=== PATIENT | male | born 1980 | race Caucasian/White ===

== ENCOUNTER 2016-06-22 20:00 | Emergency (ER) | payer MEDICARE, OTHER ==
[2016-06-22] MEDS ORDERED: NITROGLYCERIN SL TABS 0.4 MG TAB SUBLINGUAL STA (22:03)
--- NOTE | 2016-06-22 22:12 | ED ---
General Adult HPI - General Chief complaint: Chest Pain Stated complaint: chest pains Time Seen by Provider: 06/22/16 21:37 Source: patient, RN notes reviewed, old records reviewed Mode of arrival: ambulatory Limitations: no limitations - History of Present Illness Initial comments: Chief complaint and history of present illness a 36-year-old male who reports approximately 10 days ago he did some heavy lifting with his family member area and 3 days later he started having right anterior chest wall discomfort out increases with twisting and turning and deep breathing. He went to [facility] 3 days later and had an evaluation. Their diagnosis was muscular skeletal strain. Patient reports since then the point specific pain to the left anterior chest wall has gone away now he has a mild tightness across the chest wall. No associated radiation to his jaw neck or back. Never to the patient have any complaints of nausea or sweats. - Related Data Home Medications Medication Instructions Recorded Confirmed Liraglutide [Victoza 3-Jose M] 1.2 mg SQ DAILY 04/28/15 06/22/16 metFORMIN HCL 1,000 mg PO BID 04/28/15 06/22/16 Previous Rx's Medication Instructions Recorded Ibuprofen [Motrin] 600 mg PO Q6HR PRN #20 tab 06/22/16 Allergies Allergy/AdvReac Type Severity Reaction Status Date / Time No Known Allergies Allergy Verified 06/22/16 22:29 Review of Systems ROS Statement: Those systems with pertinent positive or pertinent negative responses have been documented in the HPI. Review of systems patient denies any visual acuity or headache patient is not chest pain but he does have mild tightness. Which can be reproduced by putting both hands together and squeezing his anterior chest wall muscles. No nausea no vomiting no sweats no abdominal pain. No complaints of any neuro deficits. All systems are reviewed. Past medical problems significant for patient having lost large amount of weight over 500 pounds down to 375. 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 At one time he was on blood thinners for. At time but is no longer needing them. The patient's surgeries include left great toe surgery. Family history not cooperative. No known ALLERGIES. Nonsmoker nondrinker. ROS Other: All systems not noted in ROS Statement are negative. Past Medical History Past Medical History: Diabetes Mellitus, Deep Vein Thrombosis (DVT), Pulmonary Embolus (PE) History of Any Multi-Drug Resistant Organisms: None Reported Past Surgical History: Orthopedic Surgery Additional Past Surgical History / Comment(s): lt. gt.toe surgery Past Anesthesia/Blood Transfusion Reactions: No Reported Reaction Past Psychological History: No Psychological Hx Reported Smoking Status: Former smoker Past Drug Use History: None Reported - Past Family History Mother Family Medical History: Diabetes Mellitus, Myocardial Infarction ([place]) Father Family Medical History: Diabetes Mellitus General Exam - General Exam Comments Initial Comments: General: The patient is awake and alert, in no distress, and does not appear acutely ill. Mild chest tightness across his chest which is reproducible by having him exercises pectoralis muscles. Vital signs show temperature 98.7 pulse 89 respiratory rate 20 pulse ox 98% room air blood pressure 135/76 Eye: Pupils are equal, round and reactive to light, extra-ocular movements are intact ; there is normal conjunctiva bilaterally. No signs of icterus. Ears, nose, mouth and throat: There are moist mucous membranes and no oral lesions. Neck: The neck is supple, there is no tenderness . Cardiovascular: There is a regular rate and rhythm. No murmur, rub or gallop is appreciated. Mild chest tightness when exerting himself. But no radiation no sweats no nausea and no other complaints. Respiratory: Lungs are clear to auscultation, respirations are non-labored, breath sounds are equal. No wheezes, stridor, rales, or rhonchi. Gastrointestinal: Soft, non-distended, non-tender abdomen without masses or organomegaly noted. There is no rebound or guarding present. No CVA tenderness. Bowel sounds are unremarkable. Back: There is no tenderness to palpation in the midline. There is no obvious deformity. No rashes noted. Musculoskeletal: Normal ROM, no tenderness, There is no pedal edema. There is no calf tenderness or swelling. Sensation intact. Pulses equal bilaterally 2+. Neurological: No complaint of any neuro deficits Skin: Skin is warm and dry and no rashes or lesions are noted. Limitations: no limitations Course Vital Signs 06/22/16 06/22/16 06/22/16 20:16 22:12 22:33 Temperature 98.7 F Pulse Rate 89 72 Pulse Rate [ 80 Right Radial] Respiratory 20 18 Rate Blood Pressure 135/76 119/79 O2 Sat by Pulse 98 99 Oximetry 06/22/16 22:38 Temperature Pulse Rate 94 Pulse Rate [ Right Radial] Respiratory 18 Rate Blood Pressure 116/66 O2 Sat by Pulse 96 Oximetry Medical Decision Making - Medical Decision Making Medical decision-making the patient's white count 10.8 hemoglobin 15 hematocrit of 44. INR is 1.0 the d-dimer normal at 0.26. Potassium 3.9, BUN 13 creatinine 0.97 with a GFR greater than 60. Glucose 132. Troponin less than 0.012. Patient was given one sublingual nitro without any significant effect. Chest chest was done and reviewed by radiologist his findings are heart and mediastinum are normal. Lungs are clear. Diaphragm is normal. Bony thorax is intact. There are chest leads. Impression; normal chest. As read by Dr. Meraz I discussed with the patient angina, costochondritis, pleurisy etc. appears though the patient strained his anterior chest wall by lifting very heavy oven. The discomfort is subsiding as the week has gone on. Labs within normal limits chest x-ray negative no improvement with sublingual nitro. The patient be advised to continue with ibuprofen home call follow up with his family physician or return emergency room as needed - Lab Data Result diagrams: 06/22/16 21:07 06/22/16 21:07 Lab Results 06/22/16 06/22/16 06/22/16 Range/Units 21:07 21:07 21:07 WBC 10.8 H (3.8-10.6) k/uL RBC 4.99 (4.30-5.90) m/uL Hgb 15.4 (13.0-17.5) gm/dL Hct 44.3 (39.0-53.0) % MCV 88.7 (80.0-100.0) fL MCH 30.8 (25.0-35.0) pg MCHC 34.7 (31.0-37.0) g/dL RDW 13.2 (11.5-15.5) % Plt Count 206 (150-450) k/uL Neutrophils % 54 % Lymphocytes % 37 % Monocytes % 3 % Eosinophils % 3 % Basophils % 1 % Neutrophils # 5.8 (1.3-7.7) k/uL Lymphocytes # 4.0 (1.0-4.8) k/uL Monocytes # 0.4 (0-1.0) k/uL Eosinophils # 0.4 (0-0.7) k/uL Basophils # 0.1 (0-0.2) k/uL PT (9.0-12.0) sec INR (<1.1) APTT (22.0-30.0) sec D-Dimer (<0.60) mg/L FEU Sodium 137 (137-145) mmol/L Potassium 3.9 (3.5-5.1) mmol/L Chloride 102 (98-107) mmol/L Carbon Dioxide 27 (22-30) mmol/L Anion Gap 8 mmol/L BUN 13 (9-20) mg/dL Creatinine 0.97 (0.66-1.25) mg/dL Est GFR (MDRD) Af Amer >60 (>60 ml/min/1.73 sqM) Est GFR (MDRD) Non-Af >60 (>60 ml/min/1.73 sqM) Glucose 132 H (74-99) mg/dL Calcium 9.2 (8.4-10.2) mg/dL Magnesium 1.8 (1.6-2.3) mg/dL Total Bilirubin 0.9 (0.2-1.3) mg/dL AST 27 (17-59) U/L ALT 24 (21-72) U/L Alkaline Phosphatase 48 (38-126) U/L Total Creatine Kinase 151 (55-170) U/L CK-MB (CK-2) 0.9 (0.0-2.4) ng/mL CK-MB (CK-2) Rel Index 0.6 Troponin I <0.012 (0.000-0.034) ng/mL Total Protein 7.3 (6.3-8.2) g/dL Albumin 4.0 (3.5-5.0) g/dL 06/22/16 Range/Units 21:07 WBC (3.8-10.6) k/uL RBC (4.30-5.90) m/uL Hgb (13.0-17.5) gm/dL Hct (39.0-53.0) % MCV (80.0-100.0) fL MCH (25.0-35.0) pg MCHC (31.0-37.0) g/dL RDW (11.5-15.5) % Plt Count (150-450) k/uL Neutrophils % % Lymphocytes % % Monocytes % % Eosinophils % % Basophils % % Neutrophils # (1.3-7.7) k/uL Lymphocytes # (1.0-4.8) k/uL Monocytes # (0-1.0) k/uL Eosinophils # (0-0.7) k/uL Basophils # (0-0.2) k/uL PT 10.3 (9.0-12.0) sec INR 1.0 (<1.1) APTT 23.9 (22.0-30.0) sec D-Dimer 0.26 (<0.60) mg/L FEU Sodium (137-145) mmol/L Potassium (3.5-5.1) mmol/L Chloride (98-107) mmol/L Carbon Dioxide (22-30) mmol/L Anion Gap mmol/L BUN (9-20) mg/dL Creatinine (0.66-1.25) mg/dL Est GFR (MDRD) Af Amer (>60 ml/min/1.73 sqM) Est GFR (MDRD) Non-Af (>60 ml/min/1.73 sqM) Glucose (74-99) mg/dL Calcium (8.4-10.2) mg/dL Magnesium (1.6-2.3) mg/dL Total Bilirubin (0.2-1.3) mg/dL AST (17-59) U/L ALT (21-72) U/L Alkaline Phosphatase (38-126) U/L Total Creatine Kinase (55-170) U/L CK-MB (CK-2) (0.0-2.4) ng/mL CK-MB (CK-2) Rel Index Troponin I (0.000-0.034) ng/mL Total Protein (6.3-8.2) g/dL Albumin (3.5-5.0) g/dL Disposition Clinical Impression: Costochondritis, acute Disposition: HOME SELF-CARE Condition: Stable Instructions: Costochondritis (ED) Additional Instructions: Take ibuprofen 600 mg every 6 hours. Follow-up with her family physician or return emergency room as needed Prescriptions: Ibuprofen [Motrin] 600 mg PO Q6HR PRN #20 tab PRN Reason: Pain Time of Disposition: 23:14
[2016-06-22 22:19] LABS: Basophils # (A) 0.1 k/uL (0-0.2); Basophils % (A) 1 %; CH 31.5; CHCM 35.7; Eosinophils # (A) 0.4 k/uL (0-0.7); Eosinophils % (A) 3 %; HCT 44.3 % (39.0-53.0); HDW 2.72; HGB 15.4 gm/dL (13.0-17.5); Luc # (Auto) 0.15; Luc % (Auto) 1; Lymphocytes % (A) 37 %; MCH 30.8 pg (25.0-35.0); MCHC 34.7 g/dL (31.0-37.0); MCV 88.7 fL (80.0-100.0); Mean Platelet Volume 7.7; Monocytes # (A) 0.4 k/uL (0-1.0); Monocytes % (A) 3 %; Neutrophils # (A) 5.8 k/uL (1.3-7.7); Neutrophils % (A) 54 %; RBC 4.99 m/uL (4.30-5.90); RDW 13.2 % (11.5-15.5); WBC 10.8 k/uL (3.8-10.6); WBC (Perox) 10.44
[2016-06-22 22:27] LABS: ALT 24 U/L (21-72); AST 27 U/L (17-59); Alkaline Phosphatase 48 U/L (38-126); Anion Gap 8 mmol/L; Blood Urea Nitrogen 13 mg/dL (9-20); Calcium 9.2 mg/dL (8.4-10.2); Carbon Dioxide 27 mmol/L (22-30); Chloride 102 mmol/L (98-107); Glucose 132 mg/dL (74-99); Magnesium 1.8 mg/dL (1.6-2.3); Non-African American GFR(MDRD) >60 (>60 ml/min/1.73 sqM); Potassium 3.9 mmol/L (3.5-5.1); Sodium 137 mmol/L (137-145); Total Bilirubin 0.9 mg/dL (0.2-1.3); Total Protein 7.3 g/dL (6.3-8.2)
[2016-06-22 22:33] LABS: Partial Thromboplastin Time 23.9 sec (22.0-30.0); Prothrombin Time 10.3 sec (9.0-12.0)
[2016-06-22 22:34] VITALS: RESP 18
[2016-06-22 22:39] LABS: Creatine Kinase 151 U/L (55-170)
--- NOTE | 2016-06-22 22:43 | XR ---
EXAMINATION TYPE: XR chest 2V DATE OF EXAM: 06/22/2016 10:25 PM COMPARISON: NONE HISTORY: Chest pain TECHNIQUE: Frontal and lateral views of the chest are obtained. FINDINGS: Heart and mediastinum are normal. Lungs are clear. Diaphragm is normal. Bony thorax is int act. There are chest leads. IMPRESSION: Normal chest
[2016-06-22 22:52] LABS: Creatine Kinase MB 0.9 ng/mL (0.0-2.4); Troponin I <0.012 ng/mL (0.000-0.034)
[2016-06-22 23:32] VITALS: BP 102/62; PULSE 80; TEMP 98.9
== END 2016-06-22 23:30 | disposition home or self-care (01) ==
LOC: EC 20:00
DX: M94.0 Chondrocostal junction syndrome [Tietze] (principal); E11.9 Type 2 diabetes mellitus without complications; Z87.891 Personal history of nicotine dependence; Z79.84 Long term (current) use of oral hypoglycemic drugs; Z79.899 Other long term (current) drug therapy
CPT/HCPCS: 36415; 71020; 80053; 82550; 82553; 83735; 84484; 85025; 85379; 85610; 85730; 93005; 99285

== ENCOUNTER 2016-06-26 18:42 | Emergency (ER) | payer MEDICARE, OTHER ==
[2016-06-26 18:51] VITALS: TEMP 98.3
--- NOTE | 2016-06-26 19:51 | ED ---
General Adult HPI - General Chief complaint: Shortness of Breath Stated complaint: back pain, SOB Time Seen by Provider: 06/26/16 19:30 Source: patient, RN notes reviewed, old records reviewed Mode of arrival: ambulatory Limitations: no limitations - History of Present Illness Initial comments: Chief complaint and history of present illness a 36-year-old male who was seen in the emergency room 4 days ago at that time the patient had across the anterior chest wall discomfort was reproducible. He had lifted with another person 500 pound oven. Vital signs at that time were within normal limits. The patient had labs done showing a normal d-dimer 0.21. Chest x-ray at that time EKG were all normal. Patient was discharged home on ibuprofen. He states he was feeling great with just those medications discomfort and anterior chest when away and he had just a mild discomfort to the left back area occasionally felt like he could not get a full deep breath. And then states he thinks he may be paranoid because he had in the past pulmonary embolism. He is not short of breath. Pulse ox is 96% room air respiratory rate 20 pulse ox 92. And again he had a normal d-dimer 4 days ago. - Related Data Home Medications Medication Instructions Recorded Confirmed Liraglutide [Victoza 3-Jose M] 1.2 mg SQ DAILY 04/28/15 06/26/16 metFORMIN HCL 1,000 mg PO BID 04/28/15 06/26/16 Previous Rx's Medication Instructions Recorded Ibuprofen [Motrin] 600 mg PO Q6HR PRN #20 tab 06/22/16 Ibuprofen [Motrin] 800 mg PO Q8HR PRN #20 tab 06/26/16 Allergies Allergy/AdvReac Type Severity Reaction Status Date / Time No Known Allergies Allergy Verified 06/26/16 19:21 Review of Systems ROS Statement: Those systems with pertinent positive or pertinent negative responses have been documented in the HPI. Review of systems no complaints of visual acuity headache or stiff neck. No chest pain or shortness of breath but just an occasional rare mild discomfort somewhere in the middle of his left back. Not entirely reproducible. On rare occasion feels like can't take a full breath or when he yawns. He thinks anxiety is causing him to feel this way. We did review his labs chest x-ray EKG from the visit is 4 days ago. Past medical problems patient is gone from 520 pounds on a 350 pounds by exercise and working out and diving property he went to [id number] diabetes mellitus from insulin-dependent diabetes mellitus. Does have a history of DVT or PE many years ago. Surgeries orthopedic surgery left great toe surgery. Family history Dr. Lafleur patient has no ALLERGIES. Nonsmoker nondrinker. ROS Other: All systems not noted in ROS Statement are negative. Past Medical History Past Medical History: Diabetes Mellitus, Deep Vein Thrombosis (DVT), Pulmonary Embolus (PE) History of Any Multi-Drug Resistant Organisms: None Reported Past Surgical History: Orthopedic Surgery Additional Past Surgical History / Comment(s): lt. gt.toe surgery Past Anesthesia/Blood Transfusion Reactions: No Reported Reaction Past Psychological History: No Psychological Hx Reported Smoking Status: Former smoker Past Alcohol Use History: Rare Past Drug Use History: None Reported - Past Family History Mother Family Medical History: Diabetes Mellitus, Myocardial Infarction ([place]) Father Family Medical History: Diabetes Mellitus General Exam - General Exam Comments Initial Comments: General: The patient is awake and alert, patient states he thinks he might just be a hypochondriac because in the past he had a pulmonary embolism and after having lifted a 500 pound of them he had some musculoskeletal discomfort initially to the anterior chest that has since gone away. There is mild discomfort to his left upper mid back. Not constant, just an occasional discomfort. Vital signs are temperature 98.3 pulse 92 respiratory rate 20 pulse ox 96% room air blood pressure 125/92 Eye: Pupils are equal, Neck: The neck is supple, there is no tenderness Cardiovascular: There is a regular rate and rhythm. No murmur, rub or gallop is appreciated. Respiratory: Lungs are clear to auscultation, respirations are non-labored, breath sounds are equal. No wheezes, stridor, rales, or rhonchi. Back: There is no tenderness to palpation in the midline. There is no obvious deformity. No rashes noted. The patient's discomfort is not constant somewhat irregular he states he thinks it's more anxiety and worry than real. Musculoskeletal: Normal ROM, no tenderness, There is no pedal edema. There is no calf tenderness or swelling. Limitations: no limitations Course Vital Signs 06/26/16 18:49 Temperature 98.3 F Pulse Rate 92 Respiratory 20 Rate Blood Pressure 125/92 O2 Sat by Pulse 96 Oximetry Medical Decision Making - Medical Decision Making We did discuss repeating labs including repeat chest x-ray and a CT with IV contrast. The patient has decided not to have a CAT scan or further workup at this time. States he is feeling good on the ibuprofen. His discomfort to the mid back is rare and only occasional. He states will follow-up with family physician return emergency room as needed. Disposition Clinical Impression: Costochondritis Disposition: HOME SELF-CARE Condition: Stable Instructions: Costochondritis (ED) Additional Instructions: Continue with ibuprofen 6R milligrams every 6 hours. Follow-up with family physician return emergency room if any questions or problems whatsoever Prescriptions: Ibuprofen [Motrin] 800 mg PO Q8HR PRN #20 tab PRN Reason: Pain Time of Disposition: 19:51
[2016-06-26 20:18] VITALS: BP 133/83; PULSE 87; RESP 18
== END 2016-06-26 20:15 | disposition home or self-care (01) ==
LOC: EC 18:42
DX: M94.0 Chondrocostal junction syndrome [Tietze] (principal); M54.9 Dorsalgia, unspecified; R06.02 Shortness of breath; E11.9 Type 2 diabetes mellitus without complications; Z87.891 Personal history of nicotine dependence; Z79.84 Long term (current) use of oral hypoglycemic drugs
CPT/HCPCS: 99285

== ENCOUNTER 2017-04-25 13:00 | Emergency (ER) | payer MEDICARE, OTHER ==
[2017-04-25 13:20] VITALS: BP 139/78; PULSE 105; RESP 20; TEMP 99.2
--- NOTE | 2017-04-25 14:48 | XR ---
EXAMINATION TYPE: XR shoulder complete LT DATE OF EXAM: 04/25/2017 CLINICAL HISTORY: Shoulder and left arm pain. TECHNIQUE: Three views of the left shoulder are obtained. COMPARISON: None. FINDINGS: There is no acute fracture/dislocation evident in the left shoulder. The glenohumeral neeru nt spaces appear within normal limits. Distal acromion morphology is preserved. The visualized ribs a re intact and unremarkable. IMPRESSION: There is no acute fracture or dislocation in the left shoulder.
--- NOTE | 2017-04-25 14:51 | ED ---
Extremity Problem HPI - General Chief complaint: Extremity Problem,Nontraumatic Stated complaint: Arm Pain Time Seen by Provider: 04/25/17 13:48 Source: patient, RN notes reviewed Mode of arrival: ambulatory Limitations: no limitations - History of Present Illness Initial comments: This is a 37-year-old male who presents to the emergency department with chief complaint of left shoulder and arm pain. Patient denies any specific injury or trauma to the arm. He does state that this has been going on for the past month and a half. He states that pain is made worse with movement of the arm. He describes the pain as an ache. He states that the pain is at his lateral shoulder and left upper arm. He also complains of numbness and tingling in his fourth and fifth digits on his left hand. Denies any neck or back pain. Denies fever, chills, chest pain, shortness of breath, abdominal pain, nausea or vomiting, constipation or diarrhea, dysuria or hematuria, headache or vision changes. - Related Data Home Medications Medication Instructions Recorded Confirmed metFORMIN HCL 1,000 mg PO BID 04/28/15 04/25/17 Previous Rx's Medication Instructions Recorded Ibuprofen 600 mg PO Q6HR #20 tablet 04/25/17 Allergies Allergy/AdvReac Type Severity Reaction Status Date / Time No Known Allergies Allergy Verified 04/25/17 13:55 Review of Systems ROS Statement: Those systems with pertinent positive or pertinent negative responses have been documented in the HPI. ROS Other: All systems not noted in ROS Statement are negative. Past Medical History Past Medical History: Diabetes Mellitus, Deep Vein Thrombosis (DVT), Pulmonary Embolus (PE) History of Any Multi-Drug Resistant Organisms: None Reported Past Surgical History: Orthopedic Surgery Additional Past Surgical History / Comment(s): lt. gt.toe surgery Past Anesthesia/Blood Transfusion Reactions: No Reported Reaction Past Psychological History: No Psychological Hx Reported Smoking Status: Former smoker Past Alcohol Use History: Rare Past Drug Use History: None Reported - Past Family History Mother Family Medical History: Diabetes Mellitus, Myocardial Infarction ([place]) Father Family Medical History: Diabetes Mellitus General Exam - General Exam Comments Initial Comments: General: Awake and alert, well-developed; in no apparent distress. HEENT: Head atraumatic, normocephalic. Pupils are equal, round and reactive to light. Extraocular movements intact. Oropharynx moist without erythema or exudate. Neck: Supple. Normal ROM. Cardiovascular: Regular rate and rhythm. No murmurs, rubs or gallops. Chest symmetrical. Respiratory: Lungs clear to auscultation bilaterally. No wheezes, rales or rhonchi. Normal respiratory effort with no use of accessory muscles. Musculoskeletal: Normal range of motion and no tenderness on palpation of left upper extremity. Sensation is intact. Radial pulses are 2+ equal and palpable bilaterally. Skin: [place], warm and dry without rashes or lesions. Neurological: Alert and oriented x3. CN II-XII grossly intact. Speech is fluent and answers are appropriate. No focal neuro deficits. Psychiatric: Normal mood and affect. No overt signs of depression or anxiety noted. Limitations: no limitations Course Vital Signs 04/25/17 13:18 Temperature 99.2 F Pulse Rate 105 H Respiratory 20 Rate Blood Pressure 139/78 O2 Sat by Pulse 98 Oximetry Medical Decision Making - Medical Decision Making This is a 37-year-old male who presents to the emergency department with chief complaint of left arm pain for a month and a half. Patient states pain is present with movement of the left arm. He also complains of numbness and tingling in his fourth and fifth digits on his left hand. Denies any specific injury, trauma or falls. X-ray of left shoulder reveals no acute abnormalities. X-ray of cervical spine did reveal mild facet arthropathy and spondylosis. Patient likely suffering from a cervical radiculopathy. He will be started on ibuprofen. He is to follow-up with his primary care provider. Patient will be discharged home. He is in no acute distress. He voices understanding and all questions were answered. - Radiology Data Radiology results: report reviewed Left shoulder x-ray findings: There is no acute fracture/dislocation evident in the left shoulder. The glenohumeral joint spaces appear within normal limits. Distal acromion morphology is preserved. The visualized ribs are intact and unremarkable. Impression: There is no acute fracture or dislocation in the left shoulder. X-ray cervical spine findings: No predental space widening or prevertebral soft tissue swelling. Normal alignment of the cervical spine. Mild facet arthropathy scattered throughout. The degree of obliquity causing some limitation in assessment of the neural foramina. Minimal endplate spondylosis is noted. Some heterotopic ossification in the posterior soft tissues of the lower neck. Impression: Scattered mild facet arthropathy. Minimal endplate spondylosis. Disposition Clinical Impression: Cervical radiculopathy Disposition: HOME SELF-CARE Condition: Good Instructions: Cervical Radiculopathy (ED) Additional Instructions: Please take medications as prescribed. Please follow up with primary care provider within 1-2 days. Return to emergency department if symptoms should worsen or any concerns arise. Prescriptions: Ibuprofen 600 mg PO Q6HR #20 tablet Referrals: Ted Franco MD [Primary Care Provider] - 1-2 days Time of Disposition: 15:10
--- NOTE | 2017-04-25 14:53 | XR ---
EXAMINATION TYPE: XR cervical spine comp DATE OF EXAM: 04/25/2017 COMPARISON: NONE HISTORY: 37 year-old male left arm and cervical pain TECHNIQUE: 6 views FINDINGS: No predental space widening or prevertebral soft tissue swelling. Normal alignment of the cervical sp ine. Mild facet arthropathy scattered throughout. The degree of obliquity causing some limitation in assessment of the neuroforamina. Minimal endplate spondylosis is noted. Some heterotopic ossification in the posterior soft tissues of the lower neck. IMPRESSION: Scattered mild facet arthropathy. Minimal endplate spondylosis.
== END 2017-04-25 15:26 | disposition home or self-care (01) ==
LOC: EC 13:00
DX: M54.12 Radiculopathy, cervical region (principal); M47.892 Other spondylosis, cervical region; E11.9 Type 2 diabetes mellitus without complications; Z87.891 Personal history of nicotine dependence; Z79.84 Long term (current) use of oral hypoglycemic drugs; Z98.890 Other specified postprocedural states
CPT/HCPCS: 72050; 99283

== ENCOUNTER 2018-01-31 11:20 | Day surgery (SDC) | payer MEDICARE, OTHER ==
[2018-01-31 12:04] VITALS: PULSE 85; RESP 20
[2018-01-31] MEDS: LIDOCAINE 1% INJ 10MG/ML (20 ML MDV) SQ ONE ×2 (12:17→12:27)
[2018-01-31 12:18] LABS: Glucose,Whole Blood 142 mg/dL (75-99)
[2018-01-31 13:08] VITALS: BP 144/82
--- NOTE | 2018-02-01 09:21 | IR ---
PICC LINE PLACEMENT: HISTORY: Infection requiring long-term antibiotic therapy PROCEDURE: Ultrasound and fluoroscopic guidance of PICC line placement. COMPLICATIONS: None ANESTHESIA: 1. 1% Lidocaine locally. FINDINGS/TECHNIQUE: The procedure was explained to the patient. The risks, complications, benefits and alternatives were discussed and any questions were answered. Informed consent was obtained. The patient was placed supine on the fluoroscopic table and prepped and draped in the usual sterile fash ion. Utilizing a 21 gauge needle and sonographic and fluoroscopic guidance, access in the right bas ilic vein was achieved and there is placement of a 0.018 guidewire. The vein is patent. A 4-F sheat h was placed over the guidewire. The guidewire and dilator were removed and a 4-F. PICC line was naun waylon through the sheath with the tip at the level of the SVC. The sheath was removed, the catheter wa s flushed and sutured into position. The patient was stable throughout the procedure and remained st able upon discharge from the Department of Radiology. The vein puncture was patent under ultrasound. A cabrera scale image was obtained to document patency of the vein punctured. All elements of the maximal barrier technique were utilized. FLUOROSCOPY TIME: 0.8 minutes of fluoroscopy and one image submitted IMPRESSION: Successful PICC line placement under ultrasound and fluoroscopic guidance.
== END 2018-01-31 13:00 | disposition home or self-care (01) ==
LOC: CATHCVL 11:20
PROVIDERS: ATTEND Radiology Diagnostic Radiology
DX: M86.172 Other acute osteomyelitis, left ankle and foot (principal)
CPT/HCPCS: 36569; 76937; 77001; C1751; C1769; J2001

== ENCOUNTER 2018-12-06 23:21 | Emergency (ER) | payer MEDICARE, OTHER ==
[2018-12-06 23:26] VITALS: PULSE 71; RESP 20; TEMP 97.9
[2018-12-06] MEDS ORDERED: KETOROLAC 30 MG/ML 1 ML VIAL IM STA (23:32)
[2018-12-06] MEDS ORDERED: AMOXIC-POT CLAV 875MG STARTER 2 EACH TABLET PO STA (23:32)
--- NOTE | 2018-12-06 23:35 | ED ---
General Adult HPI - General Chief complaint: ENT Stated complaint: Ear/facial pain Time Seen by Provider: 12/06/18 23:26 Source: patient Mode of arrival: ambulatory Limitations: no limitations - History of Present Illness Initial comments: 38-year-old male patient presents to the emergency department today for evaluation of right ear pain. Patient states that he started having some discomfort yesterday and today the pain worsens significantly. States he is having pain from his jaw up into his evangelical and in his right ear. Patient does have history of diabetes. Did have an infection to the right ear 3 months ago. Patient states he also has been told that he has problems with his wisdom teeth. He has not been back to a dentist to get this evaluated. States he has been taking Tylenol Motrin without relief. Denies any fever or chills. Denies any drainage from the ear. Patient denies any recent rash, shortness breath, chest pain, abdominal pain, nausea, vomiting, diarrhea, constipation, back pain, numbness, tingling, dizziness, weakness, hematuria, dysuria, urinary urgency, urinary frequency, headache, visual changes, or any other complaints. - Related Data Home Medications Medication Instructions Recorded Confirmed metFORMIN HCL 1,000 mg PO BID 04/28/15 01/31/18 traMADol HCL [Ultram] 50 mg PO Q6HR PRN 09/21/17 01/31/18 Lisinopril [Prinivil] 5 mg PO DAILY 01/23/18 01/31/18 Previous Rx's Medication Instructions Recorded Ertapenem [INVanz] 1 gm IVPB Q24H #41 bag 01/12/18 Amoxic-Pot Clav 875-125Mg 1 tab PO Q12HR #20 tablet 12/06/18 [Augmentin 875-125] Naproxen [EC-Naprosyn] 500 mg PO BID PRN #30 tablet. 12/06/18 Allergies Allergy/AdvReac Type Severity Reaction Status Date / Time No Known Allergies Allergy Verified 01/30/18 08:39 Review of Systems ROS Statement: Those systems with pertinent positive or pertinent negative responses have been documented in the HPI. ROS Other: All systems not noted in ROS Statement are negative. Past Medical History Past Medical History: Diabetes Mellitus, Deep Vein Thrombosis (DVT), Hypertension, Pulmonary Embolus (PE) History of Any Multi-Drug Resistant Organisms: None Reported Past Surgical History: Orthopedic Surgery Additional Past Surgical History / Comment(s): lt. gt.toe surgery Past Anesthesia/Blood Transfusion Reactions: No Reported Reaction Past Psychological History: No Psychological Hx Reported Smoking Status: Former smoker Past Alcohol Use History: Rare Past Drug Use History: Marijuana - Past Family History Mother Family Medical History: Diabetes Mellitus, Myocardial Infarction ([place]) Father Family Medical History: Diabetes Mellitus General Exam Limitations: no limitations General appearance: alert, in no apparent distress, other (Physical well- developed, well-nourished adult male patient in no acute distress. Vital signs upon presentation are temperature 97.9F, pulse 71, respirations 20, blood pressure 171/111, pulse ox 98% on room air.) Eye exam: Present: normal appearance, PERRL, EOMI. Absent: scleral icterus, conjunctival injection, periorbital swelling ENT exam: Present: normal oropharynx, mucous membranes moist, other (No mastoid tenderness. No trismus.). Absent: TM's normal bilaterally (Right tympanic membrane erythema and bulging. No exudate. .) Neck exam: Present: normal inspection. Absent: tenderness, meningismus, lymphadenopathy Respiratory exam: Present: normal lung sounds bilaterally Cardiovascular Exam: Present: regular rate, normal rhythm, normal heart sounds. Absent: systolic murmur, diastolic murmur, rubs, gallop, clicks GI/Abdominal exam: Present: soft, normal bowel sounds. Absent: distended, tenderness, guarding, rebound, rigid Neurological exam: Present: alert, oriented X3, CN II-XII intact Psychiatric exam: Present: normal affect, normal mood Skin exam: Present: warm, dry, intact, normal color. Absent: rash Course Vital Signs 12/06/18 12/06/18 23:22 23:52 Temperature 97.9 F Pulse Rate 71 Respiratory 20 Rate Blood Pressure 171/111 150/100 O2 Sat by Pulse 98 Oximetry Medical Decision Making - Medical Decision Making 38-year-old male patient presents to the emergency department today for evaluation of right ear pain. Physical examination did reveal a bulging and erythematous right tympanic membrane. There is no mastoid tenderness, no trismus, no lymphadenopathy. He is afebrile. Blood pressure is elevated, most likely related to pain. He'll be given pain medication here in the emergency department. He'll be discharged with prescription for Augmentin and naproxen. He is instructed to follow-up with his primary care physician for recheck in 1-2 days. Return parameters were discussed in detail. He verbalizes understanding and agrees with this plan. Disposition Clinical Impression: Right otitis media Disposition: HOME SELF-CARE Condition: Good Instructions (If sedation given, give patient instructions): Ear Infection (ED), Temporomandibular Disorder (ED) Additional Instructions: Take medication as directed. Follow-up through primary care physician for recheck in 1-2 days. Follow up with dentistry for recheck as soon as possible. Return to the emergency department immediately for any new, worsening, or concerning symptoms. Your prescriptions have been sent to the [facility] in [place], [place] Prescriptions: Amoxic-Pot Clav 875-125Mg [Augmentin 875-125] 1 tab PO Q12HR #20 tablet Naproxen [EC-Naprosyn] 500 mg PO BID PRN #30 tablet.dr BONILLA Reason: Pain Is patient prescribed a controlled substance at d/c from ED?: No Referrals: Ted Franco MD [Primary Care Provider] - 1-2 days Time of Disposition: 23:34
[2018-12-06 23:52] VITALS: BP 150/100
== END 2018-12-06 23:54 | disposition home or self-care (01) ==
LOC: EC 23:21
DX: H66.91 Otitis media, unspecified, right ear (principal); R68.84 Jaw pain; E11.9 Type 2 diabetes mellitus without complications; I10 Essential (primary) hypertension; Z79.84 Long term (current) use of oral hypoglycemic drugs; Z79.899 Other long term (current) drug therapy; Z87.891 Personal history of nicotine dependence; Z86.711 Personal history of pulmonary embolism; Z86.718 Personal history of other venous thrombosis and embolism
CPT/HCPCS: 96372; 99283; J1885

== ENCOUNTER → 2019-10-10 | Outpatient (CLI) | payer MEDICARE ==
--- NOTE | 2019-10-15 10:06 | P.ARTDOP ---
Arterial Doppler LOWER EXTREMITY ARTERIAL DOPPLER: DATE OF SERVICE: 10/10/2019 Reason for study: Left foot ulcer. Doppler waveforms: Multiphasic bilaterally throughout. Pulse volume recording: []. Pressure gradients: None. Ankle-brachial indices: Greater than 1 bilaterally. Toe brachial indices: 0.79 on the right, 0.9 on the left Impression: Normal study.
== END | disposition home or self-care (01) ==
LOC: RADUSWWP 12:59
PROVIDERS: ATTEND Family Medicine
DX: L97.529 Non-pressure chronic ulcer of other part of left foot with unspecified severity (principal)
CPT/HCPCS: 93922

== ENCOUNTER 2021-01-27 11:43 | Inpatient (IN) | payer MEDICARE, OTHER ==
--- NOTE | 2021-01-27 12:40 | XR ---
EXAMINATION TYPE: XR chest 2V DATE OF EXAM: 01/27/2021 COMPARISON: 06/22/2016 HISTORY: Chest pain TECHNIQUE: Frontal and lateral views of the chest are obtained. FINDINGS: There is no focal air space opacity. No evidence for pneumothorax. No pleural effusion. The cardiac silhouette size is within normal limits. The osseous structures are grossly intact. IMPRESSION: 1. No acute cardiopulmonary process.
--- NOTE | 2021-01-27 13:57 | ED ---
General Adult HPI - General Chief complaint: Chest Pain Stated complaint: Chest Pain Time Seen by Provider: 01/27/21 13:16 Source: patient Mode of arrival: ambulatory Limitations: no limitations - History of Present Illness Initial comments: Dictation was produced using Nove[employer] dictation software. please excuse any grammatical, word or spelling errors. Chief Complaint: 40-year-old male presents to the emergency department for chest pain History of Present Illness: Patient is a 40-year-old male he has past medical history of diabetes, obesity. Presents to the emergency department for chest pain. Patient complains also of shortness of breath. He allegedly has history of DVT and pulmonary embolus. Patient states that he has dull chest pain to his left anterior chest. Ongoing for the last couple days worse with exertion. P atient states history family history of cardiac disease. His mother was diagnosed with cardiac issues in her 50s. Denies any fever. No cough. Patient is remote history of PEs. He was on blood thinners at the time. This allegedly happened 7 years ago. DVT/PE prophylaxis. The ROS documented in this emergency department record has been reviewed and confirmed by me. Those systems with pertinent positive or negative responses have been documented in the HPI. All other systems are other negative and/or noncontributory. PHYSICAL EXAM: General Impression: Alert and oriented x3, not in acute distress HEENT: Normocephalic atraumatic, extra-ocular movements intact, pupils equal and reactive to light bilaterally, mucous membranes moist. Cardiovascular: Heart regular rate and rhythm Chest: Able to complete full sentences, no retractions, no tachypnea Abdomen: abdomen soft, non-tender, non-distended, no organomegaly Musculoskeletal: Pulses present and equal in all extremities, no peripheral edema Motor: no focal deficits noted Neurological: CN II-XII grossly intact, no focal motor or sensory deficits noted Skin: Intact with no visualized rashes Psych: Normal affect and mood ED course: 40-year-old male with multiple comorbidities presents to the emergency department for chest pain shortness of breath. Signs upon arrival shows findings within acceptable limits. Patient is not dyspneic at the bedside appears not tachycardic or hypotensive. Not hypoxic. EKG is unremarkable. Lab to evaluation obtained. CBC, coag panel is negative. Metabolic panel is within acceptable limits. Troponin is negative. D-dimer is 4.96. CT angios the chest was obtained showing multiple pulmonary emboli. No CT evidence of right heart strain. Patient started heparin. Patient will be admitted. Vascular surgery and pulmonology because consulted. Patient will be admitted to [facility].Patient reevaluated at bedside at 4:00 PM finding stable medical condition. Does not have any CT or laboratory evidence of right heart strain. He is not tachycardic nor hypoxic and well-appearing. Patient be admitted to telemetry. EKG interpretation: Ventricular rate 75, normal sinus rhythm,. 162, QRS 92, QTC 422. No MD prolongation, no QTC prolongation, no ST or T-wave changes noted. EKG compared to 06/22/2016 showing no changes. Overall, this EKG is unremarkable - Related Data Home Medications Medication Instructions Recorded Confirmed metFORMIN HCL [Glucophage] 1,000 mg PO BID 04/28/15 01/27/21 traMADol HCL [Ultram] 50 mg PO TID PRN 09/21/17 01/27/21 Atorvastatin Calcium [Lipitor] 10 mg PO DAILY 01/27/21 01/27/21 Semaglutide [Ozempic] 1 mg PO MO 01/27/21 01/27/21 lisinopriL [Zestril] 2.5 mg PO DAILY 01/27/21 01/27/21 rOPINIRole HCL [Requip] 0.5 mg PO HS 01/27/21 01/27/21 Allergies Allergy/AdvReac Type Severity Reaction Status Date / Time No Known Allergies Allergy Verified 01/27/21 14:28 Review of Systems ROS Statement: Those systems with pertinent positive or pertinent negative responses have been documented in the HPI. ROS Other: All systems not noted in ROS Statement are negative. Past Medical History Past Medical History: Diabetes Mellitus, Deep Vein Thrombosis (DVT), Hypertension, Pulmonary Embolus (PE) History of Any Multi-Drug Resistant Organisms: None Reported Past Surgical History: Orthopedic Surgery Additional Past Surgical History / Comment(s): lt. gt.toe surgery Past Anesthesia/Blood Transfusion Reactions: No Reported Reaction Past Psychological History: No Psychological Hx Reported Past Alcohol Use History: Rare Past Drug Use History: Marijuana - Past Family History Mother Family Medical History: Diabetes Mellitus, Myocardial Infarction ([place]) Father Family Medical History: Diabetes Mellitus General Exam Limitations: no limitations Course Vital Signs 01/27/21 01/27/21 11:50 13:36 Temperature 96.9 F L Pulse Rate 93 82 Pulse Rate [ 82 Right Pulse Oximetery] Respiratory 19 20 Rate Blood Pressure 157/102 153/88 O2 Sat by Pulse 97 97 Oximetry Medical Decision Making - Lab Data Result diagrams: 01/27/21 13:54 01/27/21 13:57 Lab Results 01/27/21 01/27/21 01/27/21 Range/Units 13:54 13:54 13:54 WBC 9.5 (3.8-10.6) k/uL RBC 5.24 (4.30-5.90) m/uL Hgb 16.4 (13.0-17.5) gm/dL Hct 45.0 (39.0-53.0) % MCV 86.0 (80.0-100.0) fL MCH 31.4 (25.0-35.0) pg MCHC 36.5 (31.0-37.0) g/dL RDW 13.1 (11.5-15.5) % Plt Count 210 (150-450) k/uL MPV 8.8 Neutrophils % 65 % Lymphocytes % 26 % Monocytes % 3 % Eosinophils % 4 % Basophils % 0 % Neutrophils # 6.2 (1.3-7.7) k/uL Lymphocytes # 2.5 (1.0-4.8) k/uL Monocytes # 0.3 (0-1.0) k/uL Eosinophils # 0.4 (0-0.7) k/uL Basophils # 0.0 (0-0.2) k/uL Hyperchromasia Moderate PT 10.5 (9.0-12.0) sec INR 1.0 (<1.2) APTT 23.7 (22.0-30.0) sec D-Dimer 4.96 H (<0.60) mg/L FEU Sodium (137-145) mmol/L Potassium (3.5-5.1) mmol/L Chloride (98-107) mmol/L Carbon Dioxide (22-30) mmol/L Anion Gap mmol/L BUN (9-20) mg/dL Creatinine (0.66-1.25) mg/dL Est GFR (CKD-EPI)AfAm (>60 ml/min/1.73 sqM) Est GFR (CKD-EPI)NonAf (>60 ml/min/1.73 sqM) Glucose (74-99) mg/dL Calcium (8.4-10.2) mg/dL Troponin I (0.000-0.034) ng/mL NT-Pro-B Natriuret Pep 162 pg/mL 01/27/21 01/27/21 Range/Units 13:57 13:57 WBC (3.8-10.6) k/uL RBC (4.30-5.90) m/uL Hgb (13.0-17.5) gm/dL Hct (39.0-53.0) % MCV (80.0-100.0) fL MCH (25.0-35.0) pg MCHC (31.0-37.0) g/dL RDW (11.5-15.5) % Plt Count (150-450) k/uL MPV Neutrophils % % Lymphocytes % % Monocytes % % Eosinophils % % Basophils % % Neutrophils # (1.3-7.7) k/uL Lymphocytes # (1.0-4.8) k/uL Monocytes # (0-1.0) k/uL Eosinophils # (0-0.7) k/uL Basophils # (0-0.2) k/uL Hyperchromasia PT (9.0-12.0) sec INR (<1.2) APTT (22.0-30.0) sec D-Dimer (<0.60) mg/L FEU Sodium 136 L (137-145) mmol/L Potassium 4.2 (3.5-5.1) mmol/L Chloride 102 (98-107) mmol/L Carbon Dioxide 26 (22-30) mmol/L Anion Gap 8 mmol/L BUN 10 (9-20) mg/dL Creatinine 0.83 (0.66-1.25) mg/dL Est GFR (CKD-EPI)AfAm >90 (>60 ml/min/1.73 sqM) Est GFR (CKD-EPI)NonAf >90 (>60 ml/min/1.73 sqM) Glucose 202 H (74-99) mg/dL Calcium 9.6 (8.4-10.2) mg/dL Troponin I <0.012 (0.000-0.034) ng/mL NT-Pro-B Natriuret Pep pg/mL Critical Care Time Critical Care Time: Yes Total Critical Care Time: 33 Disposition Clinical Impression: Pulmonary embolism Disposition: ADMITTED IP TO THIS HOSP Condition: Critical Referrals: Ted Franco MD [Primary Care Provider] - 1-2 days
[2021-01-27 14:10] LABS: African American GFR (CKD) >90 (>60 ml/min/1.73 sqM); Anion Gap 8 mmol/L; Blood Urea Nitrogen 10 mg/dL (9-20); Calcium 9.6 mg/dL (8.4-10.2); Carbon Dioxide 26 mmol/L (22-30); Chloride 102 mmol/L (98-107); Glucose 202 mg/dL (74-99); Non-African American GFR(CKD) >90 (>60 ml/min/1.73 sqM); Potassium 4.2 mmol/L (3.5-5.1); Sodium 136 mmol/L (137-145)
[2021-01-27 14:12] LABS: Basophils % (A) 0 %; Eosinophils # (A) 0.4 k/uL (0-0.7); Eosinophils % (A) 4 %; HGB 16.4 gm/dL (13.0-17.5); Hyperchromasia Moderate; Lymphocytes # (A) 2.5 k/uL (1.0-4.8); Lymphocytes % (A) 26 %; MCH 31.4 pg (25.0-35.0); MCHC 36.5 g/dL (31.0-37.0); Mean Platelet Volume 8.8; Monocytes # (A) 0.3 k/uL (0-1.0); Monocytes % (A) 3 %; Neutrophils # (A) 6.2 k/uL (1.3-7.7); Neutrophils % (A) 65 %; Platelet Count 210 k/uL (150-450); RBC 5.24 m/uL (4.30-5.90); RDW 13.1 % (11.5-15.5); WBC 9.5 k/uL (3.8-10.6)
[2021-01-27 14:24] LABS: Partial Thromboplastin Time 23.7 sec (22.0-30.0); Prothrombin Time 10.5 sec (9.0-12.0)
[2021-01-27] MEDS ORDERED: HEPARIN SODIUM 1,000 UN/ML (10ML VL) IV ONE (16:12)
[2021-01-27] MEDS ORDERED: HEPARIN SODIUM 1,000 UN/ML (10ML VL) IV PRN (16:12)
--- NOTE | 2021-01-27 16:13 | CT ---
EXAMINATION TYPE: CT angio chest DATE OF EXAM: 01/27/2021 COMPARISON: Chest x-ray earlier today HISTORY: elevated D-dimer, left-sided chest pain. CT DLP: 1053.4 mGycm. Automated Exposure Control for Dose Reduction was Utilized. CONTRAST: CTA scan of the thorax is performed with IV Contrast, patient injected with 100 mL of Isovue 370, pul monary embolism protocol. MIP Images are created on CT scanner and reviewed. FINDINGS: LUNGS: The lungs are grossly clear, there is no concerning parenchymal mass or nodule identified. T here is no pleural effusion or pneumothorax seen. The tracheobronchial tree is patent. MEDIASTINUM: There is suboptimal bolus but there is significant pulmonary emboli as there is embolism of the distal left pulmonary artery extending into upper and lower lobe along with lingular branches . There is branching thrombus in the distal right pulmonary artery thickening most prominent extensi on into the right middle lobe. There is segmental thrombus in the right lower lobe pulmonary artery a xial image 85 with subsegmental extension. Smaller upper lobe bilateral pulmonary emboli are seen. No right ventricular dilatation. There are no greater than 1 cm hilar or mediastinal lymph nodes. No cardiomegaly or pericardial effusion is seen. OTHER: Prominent liver on the localizer. Correlate clinically. IMPRESSION: Suboptimal study with significant bilateral pulmonary emboli. No CT evidence for RV strai n. Results communicated to ordering ER physician via telephone at time of dictation.
[2021-01-27] MEDS ORDERED: ONDANSETRON 4 MG/2 ML VIAL IVP PRN (16:16)
[2021-01-27] MEDS ORDERED: MORPHINE SULFATE 4 MG/ML SYRINGE IV PRN (16:16)
[2021-01-27] MEDS ORDERED: NALOXONE 0.4 MG/ML 1 ML VIAL IV PRN (16:16)
[2021-01-27] MEDS: HEPARIN SOD,PORK IN 0.45% NACL 25,000 UNIT in 0.45% NACL 1 250ML.BAG IV SCH (17:10)
[2021-01-27] MEDS: SODIUM CHLORIDE 0.9% 1,000 ML IV SCH (17:16)
[2021-01-27] MEDS ORDERED: traMADol 50 MG TAB PO PRN (18:00)
--- NOTE | 2021-01-27 18:04 | P.HPIM ---
History of Present Illness H&P Date: 01/27/21 Chief Complaint: Chest pain, dyspnea 40-year-old man with medical history of diabetes, hypertension, hyperlipidemia, history of pulmonary embolism, class III obesity presented with chest pain and shortness of breath. Patient says he has experienced symptoms for 2 days, star ting with sudden onset chest pain as well as progressive dyspnea on exertion. Due to his history of pulmonary embolism when he was in his late 20s, he became concerned and presented to the emergency room for further evaluation. He also noted that his exercise tolerance was becoming significantly worse over the last 48 hours. He denies fevers, chills, nausea, vomiting, palpitations, syncope, presyncope, cough, abdominal pain, diarrhea, constipation, numbness/weakness. In the emergency room, CT angiography of the chest demonstrated multiple bilateral pulmonary embolisms most significantly involving the right side. EKG demonstrated normal sinus rhythm with no ST-T changes. Review of Systems All Systems reviewed and pertinent positives and negatives noted in HPI, all other symptoms are negative Past Medical History Past Medical History: Diabetes Mellitus, Deep Vein Thrombosis (DVT), Hypertension, Pulmonary Embolus (PE) History of Any Multi-Drug Resistant Organisms: None Reported Past Surgical History: Orthopedic Surgery Additional Past Surgical History / Comment(s): lt. gt.toe surgery Past Anesthesia/Blood Transfusion Reactions: No Reported Reaction Past Psychological History: No Psychological Hx Reported Past Alcohol Use History: Rare Past Drug Use History: Marijuana - Past Family History Mother Family Medical History: Diabetes Mellitus, Myocardial Infarction ([place]) Father Family Medical History: Diabetes Mellitus Medications and Allergies Home Medications Medication Instructions Recorded Confirmed Type metFORMIN HCL [Glucophage] 1,000 mg PO BID 04/28/15 01/27/21 History traMADol HCL [Ultram] 50 mg PO TID PRN 09/21/17 01/27/21 History Atorvastatin Calcium [Lipitor] 10 mg PO DAILY 01/27/21 01/27/21 History Semaglutide [Ozempic] 1 mg PO MO 01/27/21 01/27/21 History lisinopriL [Zestril] 2.5 mg PO DAILY 01/27/21 01/27/21 History rOPINIRole HCL [Requip] 0.5 mg PO HS 01/27/21 01/27/21 History Allergies Allergy/AdvReac Type Severity Reaction Status Date / Time No Known Allergies Allergy Verified 01/27/21 14:28 Physical Exam Osteopathic Statement: *. No significant issues noted on an osteopathic struc tural exam other than those noted in the History and Physical/Consult. Vitals: Vital Signs Temp Pulse Pulse Resp BP Pulse Ox 01/27/21 13:36 82 82 20 153/88 97 01/27/21 11:50 96.9 F L 93 19 157/102 97 Intake and Output 01/27/21 01/27/21 01/27/21 06:59 14:59 22:59 Other: Weight 176.901 kg Gen: awake, alert, morbidly obese HEENT: normocephalic, atraumatic, good hearing acuity, moist mucous membranes Resp: good air exchange, breathing comfortably with no accessory muscle use, clear to auscultation bilaterally CVS: good distal perfusion x 4, regular rate and rhythm without murmurs GI: soft, NTTP, ND : no SPT, no CVAT, uribe catheter not present MSK: no pitting edema, no clubbing Neuro: non-focal, moving all extremities Psych: cooperative, euthymic mood Results CBC & Chem 7: 01/27/21 13:54 01/27/21 13:57 Labs: Abnormal Lab Results - Last 24 Hours (Table) 01/27/21 01/27/21 Range/Units 13:54 13:57 D-Dimer 4.96 H (<0.60) mg/L FEU Sodium 136 L (137-145) mmol/L Glucose 202 H (74-99) mg/dL Assessment and Plan Assessment: Acute bilateral submassive pulmonary embolism, unprovoked -Admit observation, telemetry -Heparin drip -BNP, troponin -Echo -Vascular, pulmonary consult Hypertension Diabetes type 2 Obesity class III, BMI 48.7 -Continue home medications, while holding metformin -LD SSI Patient is full code
[2021-01-27 21:22] LABS: Glucose,Whole Blood 136 mg/dL (75-99)
[2021-01-28 01:59] VITALS: RESP 18
[2021-01-28] MEDS: HEPARIN SOD,PORK IN 0.45% NACL 25,000 UNIT in 0.45% NACL 1 250ML.BAG IV SCH (02:04)
[2021-01-28 06:32] LABS: Glucose,Whole Blood 187 mg/dL (75-99)
[2021-01-28] MEDS ORDERED: INSULIN ASPART (NovoLOG) 100 UNIT/ML VIAL SQ SCH (07:30)
[2021-01-28 08:32] VITALS: BP 153/78; PULSE 69; TEMP 97.9
--- NOTE | 2021-01-28 08:40 | P.GSCN ---
History of Present Illness Consult date: 01/28/21 Reason for Consult: Bilateral pulmonary embolism Requesting physician: Jatinder Barker History of present illness: This is a 40-year-old male who presented to the emergency department with complaints of shortness of breath and chest pain. States it began to 3 days ago but has progressively gotten worse especially with exertion. Patient does have a past medical history of obesity, diabetes mellitus and previous DVT/pulmonary embolism. On admission the patient underwent a CT angiogram of the chest which was positive for bilateral miliary emboli. No CT evidence for RV strain. Echocardiogram has been ordered but is pending. On admission troponins were normal. The patient states his previous DVT pulmonary embolism was thought to be related to a sedentary lifestyle in 2006 he lost his job. He states recently in December he drove to [place] and back. He states he did not notice any increased swelling in his lower extremities or pain in his lower extremities. He states he does believe he may have seen a senior security architect in the past regarding the DVTs. States that his mother does have a significant history of blood clots and has had filters placed. He denies any clotting disorder that he knows of. He currently states his shortness of breath and chest pain has improved. States even walking to the restroom shortness of breath has improved. He is currently on a heparin drip. Oxygen saturation is 94-97% on room air. Review of Systems A 14 point review of systems was completed all pertinent positives and negatives as stated in the HPI Past Medical History Past Medical History: Diabetes Mellitus, Deep Vein Thrombosis (DVT), Hypertension, Pulmonary Embolus (PE) History of Any Multi-Drug Resistant Organisms: None Reported Past Surgical History: Orthopedic Surgery Additional Past Surgical History / Comment(s): lt. gt.toe surgery Past Anesthesia/Blood Transfusion Reactions: No Reported Reaction Past Psychological History: No Psychological Hx Reported Past Alcohol Use History: Rare Past Drug Use History: Marijuana - Past Family History Mother Family Medical History: Diabetes Mellitus, Myocardial Infarction ([place]) Father Family Medical History: Diabetes Mellitus Medications and Allergies Home Medications Medication Instructions Recorded Confirmed Type metFORMIN HCL [Glucophage] 1,000 mg PO BID 04/28/15 01/27/21 History traMADol HCL [Ultram] 50 mg PO TID PRN 09/21/17 01/27/21 History Atorvastatin Calcium [Lipitor] 10 mg PO DAILY 01/27/21 01/27/21 History Semaglutide [Ozempic] 1 mg PO MO 01/27/21 01/27/21 History lisinopriL [Zestril] 2.5 mg PO DAILY 01/27/21 01/27/21 History rOPINIRole HCL [Requip] 0.5 mg PO HS 01/27/21 01/27/21 History Allergies Allergy/AdvReac Type Severity Reaction Status Date / Time No Known Allergies Allergy Verified 01/27/21 14:28 Surgical - Exam Vital Signs Temp Pulse Resp BP Pulse Ox 96.9 F L 93 19 157/102 97 01/27/21 11:50 01/27/21 11:50 01/27/21 11:50 01/27/21 11:50 01/27/21 11:50 General appearance: The patient is alert, oriented, appears in no acute di stress. Morbidly obese. HET: Head is normocephalic and atraumatic. Neck: Supple without lymphadenopathy. Trachea midline. Heart: S1 S2. Regular rate and rhythm. Lungs: Clear to auscultation bilaterally. Abdomen: Soft, nontender, nondistended. Extremities: Normal skin color and turgor. No cyanosis, rash, ulceration, clubbing, or edema. Radial and pedal pulses are 2/4 bilaterally. Neurological: No focal deficits. Strength and sensation are grossly intact. Results - Labs 01/27/21 13:54 01/27/21 13:57 Abnormal Lab Results - Last 24 Hours (Table) 01/27/21 01/27/21 01/27/21 Range/Units 13:54 13:57 21:17 APTT (22.0-30.0) sec D-Dimer 4.96 H (<0.60) mg/L FEU Sodium 136 L (137-145) mmol/L Glucose 202 H (74-99) mg/dL POC Glucose (mg/dL) 136 H (75-99) mg/dL 01/27/21 01/28/21 01/28/21 Range/Units 23:47 06:20 06:21 APTT 47.5 H 41.0 H (22.0-30.0) sec D-Dimer (<0.60) mg/L FEU Sodium (137-145) mmol/L Glucose (74-99) mg/dL POC Glucose (mg/dL) 187 H (75-99) mg/dL Diabetes panel 01/27/21 Range/Units 13:57 Sodium 136 L (137-145) mmol/L Potassium 4.2 (3.5-5.1) mmol/L Chloride 102 (98-107) mmol/L Carbon Dioxide 26 (22-30) mmol/L BUN 10 (9-20) mg/dL Creatinine 0.83 (0.66-1.25) mg/dL Glucose 202 H (74-99) mg/dL Calcium 9.6 (8.4-10.2) mg/dL Calcium panel 01/27/21 Range/Units 13:57 Calcium 9.6 (8.4-10.2) mg/dL Pituitary panel 01/27/21 Range/Units 13:57 Sodium 136 L (137-145) mmol/L Potassium 4.2 (3.5-5.1) mmol/L Chloride 102 (98-107) mmol/L Carbon Dioxide 26 (22-30) mmol/L BUN 10 (9-20) mg/dL Creatinine 0.83 (0.66-1.25) mg/dL Glucose 202 H (74-99) mg/dL Calcium 9.6 (8.4-10.2) mg/dL Adrenal panel 01/27/21 Range/Units 13:57 Sodium 136 L (137-145) mmol/L Potassium 4.2 (3.5-5.1) mmol/L Chloride 102 (98-107) mmol/L Carbon Dioxide 26 (22-30) mmol/L BUN 10 (9-20) mg/dL Creatinine 0.83 (0.66-1.25) mg/dL Glucose 202 H (74-99) mg/dL Calcium 9.6 (8.4-10.2) mg/dL - Imaging CT scan - chest: report reviewed Assessment and Plan Assessment: 1. Bilateral pulmonary embolism 2. Morbid obesity 3. History of DVT/pulmonary embolism Plan: 1. Echocardiogram pending results 2. Lower extremity venous Doppler ordered 3. Continue heparin drip for now, transition to Eliquis 4. Agree with hematology consult for further workup due to patient history and family history. 5. Script sent to pharmacy for Eliquis, patient is cleared for discharge by [facility] surgery The impression and plan of care has been dictated as directed. Dr. Wang I performed a history and examination of this patient, discussed the same with the dictator. I agree with the dictator's note ,documented as a scribe. Any additional findings or plans will be noted.
[2021-01-28] MEDS ORDERED: ATORVASTATIN 10 MG TAB PO SCH (09:00)
--- NOTE | 2021-01-28 09:49 | US ---
EXAMINATION TYPE: US venous doppler duplex LE DATE OF EXAM: 01/28/2021 8:36 AM COMPARISON: NONE CLINICAL HISTORY: 40-year-old male B/L PE. Hx of DVT in right lower extremity SIDE PERFORMED: Bilateral TECHNIQUE: The lower extremity deep venous system is examined utilizing real time linear array sonog jorden with graded compression, doppler sonography and color-flow sonography. FINDINGS: VESSELS IMAGED: Common Femoral Vein Deep Femoral Vein Greater Saphenous Vein * Femoral Vein Popliteal Vein Small Saphenous Vein * Proximal Calf Veins (* superficial vessels) Right Leg: Positive for DVT. Non occlusive thrombus seen in right popV Left Leg: Negative for DVT IMPRESSION: 1. Right lower extremity positive for DVT at the level of the popliteal vein. This thrombus is incomp letely occlusive possibly representing early recanalization. 2. No evidence for DVT within the left lower extremity imaged from the groin to the upper calf.
[2021-01-28] MEDS ORDERED: APIXABAN 5 MG TAB PO SCH (10:00)
[2021-01-28] MEDS: SODIUM CHLORIDE 0.9% 1,000 ML IV SCH (10:06)
--- NOTE | 2021-01-28 10:37 | P.CNPUL ---
History of Present Illness Consult date: 01/28/21 Requesting physician: Chidi Rangel Reason for consult: dyspnea, hypoxemia, pulmonary embolism, abnormal CXR/CT Chief complaint: Shortness of breath and left-sided chest pain. History of present illness: Pulmonary consult dated 01/28/2021. 40-year-old male, who was seen in the emergency department, on January 27. He came into the emergency department, complaining of chest pain and shortness of breath. The symptoms have been present for one or 2 days prior to admission. The patient has a prior history of DVT and pulmonary embolism, and apparently his mother has similar history. The patient was evaluated in the emergency room, and was found to have bilateral pulmonary emboli, without CT evidence of right ventricular strain. The patient was on IV heparin. He was not receiving any supplemental oxygen. The patient does have a history of hypertension, diabetes, hyperlipidemia. He does also have a history of obesity. A vascular consultation was ordered by the primary service. We also recommended a hematology consultation given the history that the mother has. White count 9.5, hemoglobin 16.4, hematocrit 45, platelet count 210,000. PT 10.5, INR 1. D- dimer was 4.96. The most recent PTT was 41. Sodium 136, potassium 4.2, chlorides 102, CO2 26, anion gap 8, BUN and creatinine were 10 and 0.83. The patient's chest x-ray was normal. DVT was negative in the left leg, positive in the right leg. CT angiogram was evaluated. CT showed evidence of pulmonary emboli. Review of Systems REVIEW OF SYSTEMS: CONSTITUTIONAL: [Negative.] NEUROLOGIC: [ Negative.] HEENT: [ Negative.] CARDIAC: Sharp chest pain, worse on deep inspiration. PULMONARY: Shortness of breath. GI: [Negative.] : [Negative.] RHEUMATOLOGIC: [ Negative.] IMMUNOLOGIC: [ Negative.] ENDOCRINE: [Negative. ] DERMATOLOGIC: [Negative.] Past Medical History Past Medical History: Diabetes Mellitus, Deep Vein Thrombosis (DVT), Hypertension, Pulmonary Embolus (PE) History of Any Multi-Drug Resistant Organisms: None Reported Past Surgical History: Orthopedic Surgery Additional Past Surgical History / Comment(s): lt. gt.toe surgery Past Anesthesia/Blood Transfusion Reactions: No Reported Reaction Past Psychological History: No Psychological Hx Reported Past Alcohol Use History: Rare Past Drug Use History: Marijuana - Past Family History Mother Family Medical History: Diabetes Mellitus, Myocardial Infarction ([place]) Father Family Medical History: Diabetes Mellitus Medications and Allergies Home Medications Medication Instructions Recorded Confirmed Type metFORMIN HCL [Glucophage] 1,000 mg PO BID 04/28/15 01/27/21 History traMADol HCL [Ultram] 50 mg PO TID PRN 09/21/17 01/27/21 History Atorvastatin Calcium [Lipitor] 10 mg PO DAILY 01/27/21 01/27/21 History Semaglutide [Ozempic] 1 mg PO MO 01/27/21 01/27/21 History lisinopriL [Zestril] 2.5 mg PO DAILY 01/27/21 01/27/21 History rOPINIRole HCL [Requip] 0.5 mg PO HS 01/27/21 01/27/21 History Apixaban [Eliquis Starter Pack 5 - 10 mg PO DIRECTED 30 Days 01/28/21 Rx (for VTE)] #1 each Allergies Allergy/AdvReac Type Severity Reaction Status Date / Time No Known Allergies Allergy Verified 01/27/21 14:28 Physical Exam Osteopathic Statement: *. No significant issues noted on an osteopathic structural exam other than those noted in the History and Physical/Consult. Vitals: Vital Signs Temp Pulse Pulse Resp BP BP Pulse Ox 01/28/21 08:00 69 18 01/28/21 07:23 97.9 F 69 18 153/78 96 01/28/21 01:59 97.8 F 74 18 136/79 94 L 01/27/21 20:00 97.9 F 74 18 121/60 94 L 01/27/21 17:44 73 20 135/83 98 01/27/21 13:36 82 82 20 153/88 97 01/27/21 11:50 96.9 F L 93 19 157/102 97 Intake and Output 01/27/21 01/28/21 01/28/21 22:59 06:59 14:59 Intake Total 138 204.673 124.184 Balance 138 204.673 124.184 Intake: Intake, IV Titration 138 204.673 124.184 Amount Heparin Sod,Pork in 0.45% 138 204.673 124.184 NaCl 25,000 unit In 0.45 % NaCl 1 250ml.bag @ 13. 002 UNITS/KG/HR 23.001 mls/hr IV .[id number] [facility] Rx #:[id number] Other: # Voids 1 Weight 176.901 kg No acute distress, oriented 3. No acute distress, no respiratory distress. Room air saturation is 96%. HEENT examination is grossly unremarkable. Neck supple. Full range of motion. No adenopathy thyromegaly or neck vein distention. Cardiovascular examination reveals regular rhythm rate. S1-S2 normal. No S3 or S4. No discernible murmur noted. Heart rate 69 bpm. Lungs reveal clear breath sounds. Breath sounds are equal bilaterally. No adventitious lung sounds including wheezes rhonchi or crackles. Abdomen soft bowel sounds are heard. No masses or tenderness. Extremities are intact. No cyanosis clubbing or edema. Skin is without rash or lesion. Neurologic examination is brief but nonfocal. Results - Laboratory Findings CBC and BMP: 01/27/21 13:54 01/27/21 13:57 PT/INR, D-dimer PT 10.5 sec (9.0-12.0) 01/27/21 13:54 INR 1.0 (<1.2) 01/27/21 13:54 D-Dimer 4.96 mg/L FEU (<0.60) H 01/27/21 13:54 Abnormal lab findings: Abnormal Labs 01/27/21 01/27/21 01/27/21 13:54 13:57 21:17 APTT D-Dimer 4.96 H Sodium 136 L Glucose 202 H POC Glucose (mg/dL) 136 H 01/27/21 01/28/21 01/28/21 23:47 06:20 06:21 APTT 47.5 H 41.0 H D-Dimer Sodium Glucose POC Glucose (mg/dL) 187 H - Diagnostic Findings Chest x-ray: image reviewed CT scan - chest: image reviewed U/S of Legs: image reviewed Assessment and Plan Assessment: Acute bilateral pulmonary emboli, without CT evidence of right ventricular strain. Right lower extremity DVT. Prior history of DVT and pulmonary embolism, and strong family history of same. History of hyperlipidemia. History of diabetes mellitus. History of hypertension. Obesity. Plan: Plan dated 01/28/2021. The patient was started on Eliquis. A vascular consult was ordered. In addition, we asked for hematology consultation. The patient may have underlying hypercoagulable state. There is a strong family history of DVT and pulmonary embolus him, and the patient himself has had a prior DVT and PE. Clinically, the patient appears to be relatively stable. He's not requiring any supplemental oxygen. Patient could be considered for possible discharge if okay with vascular surgery. Additional recommendations and suggestions are forthcoming. We will continue to follow make recommendations where appropriate. She should be also noted that the patient did drive to [place] in December. Time with Patient: Greater than 30
[2021-01-28 11:15] LABS: Glucose,Whole Blood 166 mg/dL (75-99)
--- NOTE | 2021-01-28 12:00 | ECHOF ---
Referral Reason:Bilateral PE MEASUREMENTS -------- HEIGHT: 190.5 cm WEIGHT: 176.9 kg BP: 136/79 RVIDd: 3.3 cm (< 3.3) IVSd: 1.3 cm (0.6 - 1.1) LVIDd: 4.9 cm (3.9 - 5.3) LVPWd: 1.3 cm (0.6 - 1.1) IVSs: 2.0 cm LVIDs: 3.8 cm LVPWs: 2.1 cm LA Diam: 3.9 cm (2.7 - 3.8) LAESV Index (A-L): 17.02 ml/m Ao Diam: 3.5 cm (2.0 - 3.7) AV Cusp: 1.9 cm (1.5 - 2.6) MV EXCURSION: 21.866 mm (> 18.000) MV EF SLOPE: 74 mm/s (70 - 150) EPSS: 0.5 cm MV E Rene: 0.94 m/s MV DecT: 254 ms MV A Rene: 0.76 m/s MV E/A Ratio: 1.24 RAP: 5.00 mmHg RVSP: 37.00 mmHg FINDINGS -------- Sinus rhythm. This was a technically adequate study. The left ventricular size is normal. There is mild concentric left ventricular hypertrophy. Overa ll left ventricular systolic function is low-normal with, an EF between 50 - 55 %. The right ventricle is mildly enlarged. Normal LA size by volume 22+/-6 ml/m2. The right atrium is normal in size. Interatrial and interventricular septum intact. The aortic valve is trileaflet, and appears structurally normal. No aortic stenosis or regurgitation. There is trace mitral regurgitation. Mild tricuspid regurgitation present. There is mild pulmonary hypertension. The right ventricular systolic pressure, as measured by Doppler, is 37.00mmHg. Trace/mild (physiologic) pulmonic regurgitation. The aortic root size is normal. Normal inferior vena cava with normal inspiratory collapse consistent with estimated right atrial pre ssure of 5 mmHg. There is no pericardial effusion. CONCLUSIONS -------- 1. The left ventricular size is normal. 2. There is mild concentric left ventricular hypertrophy. 3. Overall left ventricular systolic function is low-normal with, an EF between 50 - 55 %. 4. The right ventricle is mildly enlarged. 5. Mild tricuspid regurgitation present. 6. There is mild pulmonary hypertension. 7. The right ventricular systolic pressure, as measured by Doppler, is 37.00mmHg. 8. Trace/mild (physiologic) pulmonic regurgitation. 9. There is no pericardial effusion. PARK SUPERINTENDENT: Marnie Hand RDCS
--- NOTE | 2021-01-28 12:47 | P.CONS ---
History of Present Illness - Reason for Consult Consult date: 01/28/21 Unprovoked PE and DVT Requesting physician: Miroslava Varela - Chief Complaint Shortness of Breath - History of Present Illness Yordy is a very pleasant 40 year old male with a history of bilateral PE in 2006, treated with 2 years on coumadin. At that time it was felt to possibly be provoked by increased sedetary lifestyle with a work change, obesity and tobacco use. He now presents 3 weeks after driving to and from [place] with bilateral PE. Review of Systems All systems: negative Constitutional: Reports as per HPI Past Medical History Past Medical History: Diabetes Mellitus, Deep Vein Thrombosis (DVT), Hypertension, Pulmonary Embolus (PE) History of Any Multi-Drug Resistant Organisms: None Reported Past Surgical History: Orthopedic Surgery Additional Past Surgical History / Comment(s): lt. gt.toe surgery Past Anesthesia/Blood Transfusion Reactions: No Reported Reaction Past Psychological History: No Psychological Hx Reported Past Alcohol Use History: Rare Past Drug Use History: Marijuana - Past Family History Mother Family Medical History: Diabetes Mellitus, Myocardial Infarction ([place]) Father Family Medical History: Diabetes Mellitus Medications and Allergies Home Medications Medication Instructions Recorded Confirmed Type metFORMIN HCL [Glucophage] 1,000 mg PO BID 04/28/15 01/27/21 History traMADol HCL [Ultram] 50 mg PO TID PRN 09/21/17 01/27/21 History Atorvastatin Calcium [Lipitor] 10 mg PO DAILY 01/27/21 01/27/21 History Semaglutide [Ozempic] 1 mg PO MO 01/27/21 01/27/21 History lisinopriL [Zestril] 2.5 mg PO DAILY 01/27/21 01/27/21 History rOPINIRole HCL [Requip] 0.5 mg PO HS 01/27/21 01/27/21 History Apixaban [Eliquis Starter Pack 5 - 10 mg PO DIRECTED 30 Days 01/28/21 Rx (for VTE)] #1 each Allergies Allergy/AdvReac Type Severity Reaction Status Date / Time No Known Allergies Allergy Verified 01/27/21 14:28 Physical Exam Vitals: Vital Signs Temp Pulse Pulse Resp BP BP Pulse Ox 01/28/21 08:00 69 18 01/28/21 07:23 97.9 F 69 18 153/78 96 01/28/21 01:59 97.8 F 74 18 136/79 94 L 01/27/21 20:00 97.9 F 74 18 121/60 94 L 01/27/21 17:44 73 20 135/83 98 01/27/21 13:36 82 82 20 153/88 97 Intake and Output 01/27/21 01/28/21 01/28/21 22:59 06:59 14:59 Intake Total 138 204.673 124.184 Balance 138 204.673 124.184 Intake: Intake, IV Titration 138 204.673 124.184 Amount Heparin Sod,Pork in 0.45% 138 204.673 124.184 NaCl 25,000 unit In 0.45 % NaCl 1 250ml.bag @ 13. 002 UNITS/KG/HR 23.001 mls/hr IV .[id number] [facility] Rx #:[id number] Other: # Voids 1 Weight 176.901 kg - Constitutional General appearance: cooperative, morbidly obese - EENT Eyes: EOMI, PERRLA ENT: NA/AT, normal oropharynx - Neck Neck: normal ROM - Respiratory Respiratory: bilateral: diminished - Cardiovascular Rhythm: regular leg Peripheral Edema: left: 1+, bilateral: Trace - Gastrointestinal General gastrointestinal: soft - Integumentary Integumentary: pale - Neurologic Neurologic: CNII-XII intact Results CBC & Chem 7: 01/27/21 13:54 01/27/21 13:57 Labs: Abnormal Lab Results - Last 24 Hours (Table) 01/27/21 01/27/21 01/27/21 Range/Units 13:54 13:57 21:17 APTT (22.0-30.0) sec D-Dimer 4.96 H (<0.60) mg/L FEU Sodium 136 L (137-145) mmol/L Glucose 202 H (74-99) mg/dL POC Glucose (mg/dL) 136 H (75-99) mg/dL 01/27/21 01/28/21 01/28/21 Range/Units 23:47 06:20 06:21 APTT 47.5 H 41.0 H (22.0-30.0) sec D-Dimer (<0.60) mg/L FEU Sodium (137-145) mmol/L Glucose (74-99) mg/dL POC Glucose (mg/dL) 187 H (75-99) mg/dL 01/28/21 Range/Units 11:13 APTT (22.0-30.0) sec D-Dimer (<0.60) mg/L FEU Sodium (137-145) mmol/L Glucose (74-99) mg/dL POC Glucose (mg/dL) 166 H (75-99) mg/dL CT scan - chest: report reviewed Venous US: report reviewed Assessment and Plan (1) Pulmonary embolism Status: Acute Code(s): I26.99 - OTHER PULMONARY EMBOLISM WITHOUT ACUTE COR PULMONALE SNOMED Code(s): 76712172 Plan: This is Yordy's second lifelong thrombolic event. Back in 2006 DVT/PE: Risk factors related to sudden increase in sedetary lifestyle, tobacco use, obesity. - He is unsure who he was seen by in 2006, although we discussed being happy to further evaluate for underlying pre-dispositions again given his mother has an extensive unprovoked clotting history. - He will be discharged on Eliquis and follow-up with Dr. Mckeon in office in approx. 6-8 weeks. Physician Attest: I have completed the full history and physical and agree with above dictation, dictated as a scribe
--- NOTE | 2021-01-28 13:18 | P.DS ---
Providers Date of admission: 01/28/21 09:38 Expected date of discharge: 01/28/21 Attending physician: Chidi Rangel MD Consults: 01/27/21 16:17 Consult Physician Routine Consulting Provider: Isrrael Feldman Consult Reason/Comments: PE Do you want consulting provider notified?: Yes Consult Physician Routine Consulting Provider: Jake Guillen Consult Reason/Comments: bilateral PE Do you want consulting provider notified?: Yes 01/28/21 07:18 Consult Physician Routine Consulting Provider: Neil Mckeon Consult Reason/Comments: Recurrent PE Do you want consulting provider notified?: Yes Primary care physician: [facility] Course: Acute bilateral submassive pulmonary embolism, unprovoked -Admitted observation, telemetry. Patient was started on a heparin drip. Vascular surgery was consulted to consider EKOS, but patient was not a candidate due to no evidence of heart strain. Hematology was consult and recommended Eliquis as well as follow-up in 6-8 weeks. Patient was discharged today with recommendations to follow-up with primary care provider within the week. Hypertension Diabetes type 2 Obesity class III, BMI 48.7 -No changes to his home medications. Assessment: Gen: awake, alert HEENT: normocephalic, atraumatic, good hearing acuity, moist mucous membranes Resp: good air exchange, breathing comfortably with no accessory muscle use CVS: good distal perfusion x 4, GI: soft, NTTP, ND : no SPT, no CVAT, uribe catheter not present MSK: no pitting edema, no clubbing Neuro: non-focal, moving all extremities Psych: cooperative, euthymic mood Patient Condition at Discharge: Good Plan - Discharge Summary Discharge Rx Participant: No New Discharge Prescriptions: New Apixaban [Eliquis Starter Pack (for VTE)] 5 - 10 mg PO DIRECTED 30 Days #1 each Continue metFORMIN HCL [Glucophage] 1,000 mg PO BID traMADol HCL [Ultram] 50 mg PO TID PRN PRN Reason: Pain lisinopriL [Zestril] 2.5 mg PO DAILY rOPINIRole HCL [Requip] 0.5 mg PO HS Atorvastatin Calcium [Lipitor] 10 mg PO DAILY Semaglutide [Ozempic] 1 mg PO MO Discharge Medication List metFORMIN HCL [Glucophage] 1,000 mg PO BID 04/28/15 [History] traMADol HCL [Ultram] 50 mg PO TID PRN 09/21/17 [History] Atorvastatin Calcium [Lipitor] 10 mg PO DAILY 01/27/21 [History] Semaglutide [Ozempic] 1 mg PO MO 01/27/21 [History] lisinopriL [Zestril] 2.5 mg PO DAILY 01/27/21 [History] rOPINIRole HCL [Requip] 0.5 mg PO HS 01/27/21 [History] Apixaban [Eliquis Starter Pack (for VTE)] 5 - 10 mg PO DIRECTED 30 Days #1 each 01/28/21 [Rx] Follow up Appointment(s)/Referral(s): Malinda Emmanuel ANPBC [Nurse Practitioner] - 2 Weeks Ted Franco MD [Primary Care Provider] - 1-2 days Marty Wang DO [STAFF PHYSICIAN] - As Needed Patient Instructions/Handouts: Pulmonary Embolism (DC), Deep Vein Thrombosis (DC) Activity/Diet/Wound Care/Special Instructions: Eliquis script filled at [facility] - copay $0 Discharge Disposition: HOME SELF-CARE
== END 2021-01-28 11:45 | disposition home or self-care (01) | DRG 176 ==
LOC: EC 11:43 → 6NMEDSUR 16:31 → 1SOBS 19:28 → OBSVTOIN 01-28 09:38
PROVIDERS: ADMIT Internal Medicine; ATTEND Internal Medicine
DX: I26.99 Other pulmonary embolism without acute cor pulmonale (principal); I82.431 Acute embolism and thrombosis of right popliteal vein; Z68.42 Body mass index [BMI] 45.0-49.9, adult; E11.9 Type 2 diabetes mellitus without complications; E66.01 Morbid (severe) obesity due to excess calories; E78.5 Hyperlipidemia, unspecified; I10 Essential (primary) hypertension; R09.02 Hypoxemia; Z79.84 Long term (current) use of oral hypoglycemic drugs; Z79.899 Other long term (current) drug therapy; Z82.49 Family history of ischemic heart disease and other diseases of the circulatory system; Z83.3 Family history of diabetes mellitus; Z86.711 Personal history of pulmonary embolism; Z86.718 Personal history of other venous thrombosis and embolism
CPT/HCPCS: 36415; 71046; 71275; 80048; 83880; 84484; 85025; 85379; 85610; 85730; 93005; 93306; 93970; 96374; 99291

== ENCOUNTER 2021-10-02 07:29 | Emergency (ER) | payer MEDICARE, OTHER ==
[2021-10-02 07:34] VITALS: BP 139/89; PULSE 100; RESP 20; TEMP 98.3
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
== END 2021-10-02 08:07 | disposition home or self-care (01) ==
LOC: EC 07:29
DX: L03.116 Cellulitis of left lower limb (principal); E11.9 Type 2 diabetes mellitus without complications; I10 Essential (primary) hypertension; Z79.899 Other long term (current) drug therapy; Z79.84 Long term (current) use of oral hypoglycemic drugs
CPT/HCPCS: 99282

== ENCOUNTER 2022-08-11 08:42 | Emergency (ER) | payer OTHER, MEDICARE ==
[2022-08-11] MEDS ORDERED: SODIUM CHLORIDE 0.9% 1,000 ML IV STA (08:59)
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
[2022-08-11] MEDS ORDERED: MORPHINE SULFATE 4 MG/ML SYRINGE IVP STA (09:12)
[2022-08-11 10:00] LABS: Partial Thromboplastin Time 26.9 sec (22.0-30.0); Prothrombin Time 10.9 sec (9.0-12.0)
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
[2022-08-11 10:10] VITALS: RESP 18
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
[2022-08-11] MEDS ORDERED: ACET/COD 300 MG/30 MG STARTER PACK 6 TAB BTL PO STA (11:18)
[2022-08-11 11:40] VITALS: BP 132/81; PULSE 70; TEMP 98.1
== END 2022-08-11 11:40 | disposition home or self-care (01) ==
LOC: EC 08:42
DX: M51.36 Other intervertebral disc degeneration, lumbar region (principal); E11.9 Type 2 diabetes mellitus without complications; I10 Essential (primary) hypertension; F17.200 Nicotine dependence, unspecified, uncomplicated; F12.90 Cannabis use, unspecified, uncomplicated; Z86.711 Personal history of pulmonary embolism; Z79.84 Long term (current) use of oral hypoglycemic drugs; Z79.899 Other long term (current) drug therapy; V49.9XXA Car occupant (driver) (passenger) injured in unspecified traffic accident, initial encounter; Y92.411 Interstate highway as the place of occurrence of the external cause
CPT/HCPCS: 36415; 93005; 85610; 85730; 72100; 72170; 73090; 71045; 72125; 70450; 99285; 96374; 96361; J2270

== ENCOUNTER 2022-09-10 08:12 | Emergency (ER) | payer MEDICARE, OTHER ==
[2022-09-10 08:16] VITALS: RESP 18
--- NOTE | 2022-09-10 08:35 | ED ---
Skin/Abscess/FB HPI - General Chief complaint: Skin/Abscess/Foreign Body Stated complaint: L toe infection Time Seen by Provider: 09/10/22 08:18 Source: patient, RN notes reviewed Mode of arrival: ambulatory Limitations: no limitations - History of Present Illness Initial comments: This is a 42-year-old male who presents to the emergency department for concerns of an infection to the second toe on his left foot. States that he has a hammertoe deformity here, and frequently gets infections. He was treated for an infection to this toe a couple of months ago, and it resolved with antibiotics. Yesterday he started to notice that the toe was bleeding, which concerned him for infection. Denies any associated pain. He is scheduled to have surgery for the hammertoes later this month, and states that they will not do the surgery if he has an infection. Denies any fevers or chills. Denies any fevers, chills, sore throat, cough, dyspnea, chest pain, palpitations, abdominal pain, nausea, vomiting, diarrhea, back pain, or headaches. - Related Data Home Medications Medication Instructions Recorded Confirmed metFORMIN HCL [Glucophage] 1,000 mg PO BID 04/28/15 08/11/22 traMADol HCL [Ultram] 50 mg PO Q6H PRN 09/21/17 08/11/22 rOPINIRole HCL [Requip] 0.5 mg PO HS 01/27/21 08/11/22 Apixaban [Eliquis] 5 mg PO BID 08/11/22 08/11/22 Atorvastatin [Lipitor] 20 mg PO DAILY 08/11/22 08/11/22 Canagliflozin [Invokana] 300 mg PO DAILY 08/11/22 08/11/22 SILVER sulfADIAZINE Cream 1 applic TOPICAL BID 08/11/22 08/11/22 [Silvadene 1% Cream] Semaglutide [Ozempic] 2 mg SQ TH 08/11/22 08/11/22 lisinopriL 2.5 mg PO DAILY 08/11/22 08/11/22 Previous Rx's Medication Instructions Recorded Cephalexin [Keflex] 500 mg PO Q6HR 7 Days #28 cap 09/10/22 Sulfamethox-Tmp 800-160Mg [Bactrim 1 tab PO Q12HR 7 Days #14 tab 09/10/22 DS 800-160 mg] Allergies Allergy/AdvReac Type Severity Reaction Status Date / Time No Known Allergies Allergy Verified 09/10/22 08:16 Review of Systems ROS Statement: Those systems with pertinent positive or pertinent negative responses have been documented in the HPI. ROS Other: All systems not noted in ROS Statement are negative. Past Medical History Past Medical History: Diabetes Mellitus, Deep Vein Thrombosis (DVT), Hypertension, Pulmonary Embolus (PE) History of Any Multi-Drug Resistant Organisms: None Reported Past Surgical History: Orthopedic Surgery Additional Past Surgical History / Comment(s): lt. gt.toe surgery Past Anesthesia/Blood Transfusion Reactions: No Reported Reaction Past Psychological History: No Psychological Hx Reported Smoking Status: Current every day smoker Past Alcohol Use History: Rare Past Drug Use History: Marijuana - Past Family History Mother Family Medical History: Diabetes Mellitus, Myocardial Infarction ([place]) Father Family Medical History: Diabetes Mellitus General Exam Limitations: no limitations General appearance: alert, in no apparent distress Head exam: Present: atraumatic, normocephalic, normal inspection Respiratory exam: Present: normal lung sounds bilaterally. Absent: respiratory distress, wheezes, rales, rhonchi, stridor Cardiovascular Exam: Present: regular rate, normal rhythm, normal heart sounds. Absent: systolic murmur, diastolic murmur, rubs, gallop, clicks Extremities exam: Present: other (Minor swelling to the right second toe with a small area in the center that has evidence of recent active bleeding. No purulent drainage.) Neurological exam: Present: alert, oriented X3, CN II-XII intact Psychiatric exam: Present: normal affect, normal mood Course Vital Signs 09/10/22 09/10/22 08:14 10:09 Temperature 98 F 98.1 F Pulse Rate 82 80 Respiratory 18 18 Rate Blood Pressure 138/89 128/76 O2 Sat by Pulse 99 97 Oximetry Medical Decision Making - Medical Decision Making This is a 42-year-old male who presents to the emergency department for concerns of an infection to the left second toe. Was pt. sent in by a medical professional or institution? @ -No Did you speak to anyone other than the patient for history? @ -No Did you review nursing and triage notes? @ -Yes, and I agree, it is accurate with regards to the patient's symptoms. Were old charts reviewed? @ -No Differential Diagnosis? @ -Differential Toe Swelling: Fracture, dislocation, contusion, abscess, cellulitis, this is not meant to be an all-inclusive list. EKG interpreted by me (3pts min.)? @ -Not obtained X-rays interpreted by me (1pt min.)? @ -X-ray of the left second toe obtained. My interpretation identifies no evidence of subcutaneous gas formation. CT interpreted by me (1pt min.)? @ -Not obtained U/S interpreted by me (1pt. min.)? @ -Not obtained What testing was considered but not performed? (CT, X-rays, U/S, labs)? Why? @ -None What meds were considered but not given? Why? @ -None Did you discuss the management of the patient with other professionals? @ -No Did you reconcile home meds? @ -No Was smoking cessation discussed for >3mins.? @ -No Was critical care preformed (if so, how long)? @ -No Were there social determinants of health that impacted care today? How? (Homelessness, low income, unemployed, alcoholism, drug addiction, transportation, low edu. Level, literacy, decrease access to med. care, senior living, rehab)? @ -No Was there de-escalation of care discussed even if they declined? (Discuss DNR or withdrawal of care, Hospice)? @ -No What co-morbidities impacted this encounter? (DM, HTN, Smoking, COPD, CAD, Cancer, CVA, Hep., AIDS, mental health diagnosis, sleep apnea, morbid obesity)? @ -DM, morbid obesity Was patient admitted / discharged? @ -Discharged. X-ray of the left second obtained revealing no evidence of osteomyelitis or subcutaneous gas formation. Will start the patient on Bactrim and Keflex for possible infection, especially because he has upcoming surgery, and any infection will prevent him from being able to proceed. Rx for Bactrim and Keflex provided. Otherwise advised follow-up with his primary care provider. Undiagnosed new problem with uncertain prognosis? @ -None Drug Therapy requiring intensive monitoring for toxicity (Heparin, Nitro, Insulin, Cardizem)? @ -None Were any procedures done? @ -None Diagnosis/symptom? @ -Cellulitis, left 2nd toe Acute, or Chronic, or Acute on Chronic? @ -Acute Uncomplicated (without systemic symptoms) or Complicated (systemic symptoms)? @ -Uncomplicated Side effects of treatment? @ -None Exacerbation, Progression, or Severe Exacerbation] @ -Not applicable Poses a threat to life or bodily function? @ -No Return precautions reviewed in depth, the patient is instructed to return to the emergency department with any new, worsening, or concerning symptoms. Patient verbalized understanding. This case was discussed in detail with the attending ED physician, Dr. Nicole. Presentation, findings, and treatment plan discussed in detail as well. - Radiology Data Radiology results: report reviewed, image reviewed Disposition Clinical Impression: Cellulitis of second toe, left Disposition: HOME SELF-CARE Instructions (If sedation given, give patient instructions): Cellulitis (ED) Additional Instructions: Return to the emergency department with any new, worsening, or concerning symptoms. Take both antibiotics as prescribed for 7 days. Follow up with your primary care provider in 1-2 days. Prescriptions: Sulfamethox-Tmp 800-160Mg [Bactrim DS 800-160 mg] 1 tab PO Q12HR 7 Days #14 tab Cephalexin [Keflex] 500 mg PO Q6HR 7 Days #28 cap Is patient prescribed a controlled substance at d/c from ED?: No Referrals: Tang Franco MD [REFERRING] - 1-2 days
--- NOTE | 2022-09-10 09:33 | XR ---
EXAMINATION TYPE: XR toes LT DATE OF EXAM: 09/10/2022 8:58 AM INDICATION: Patient age:Male; 42 years old; Reason for study: Left 2nd toe infection; [facility]. COMPARISON: 07/09/2022 TECHNIQUE: The left toe was examined in the AP, oblique, and lateral projections. FINDINGS: Fixation changes with hardware in place within the left first metatarsal. Hardware appears intact. Ov erall the morphology of the osseous structures appear similar. No definitive osseous erosion visualiz ed. No evidence of fracture. There is severe degeneration changes with osteophyte formation joint spa ce narrowing of the first digit metacarpal phalangeal joint. IMPRESSION: Postsurgical changes with hardware intact. No osseous erosion visualized to suggest osteomyelitis. Severe degeneration changes at the first digit metatarsal carpal phalangeal joint.
[2022-09-10 10:12] VITALS: BP 128/76; PULSE 80; TEMP 98.1
== END 2022-09-10 10:13 | disposition home or self-care (01) ==
LOC: EC 08:12
DX: L03.032 Cellulitis of left toe (principal); E11.9 Type 2 diabetes mellitus without complications; I10 Essential (primary) hypertension; E66.01 Morbid (severe) obesity due to excess calories; F17.200 Nicotine dependence, unspecified, uncomplicated; F12.90 Cannabis use, unspecified, uncomplicated; Z79.01 Long term (current) use of anticoagulants; Z79.84 Long term (current) use of oral hypoglycemic drugs; Z79.899 Other long term (current) drug therapy; Z86.718 Personal history of other venous thrombosis and embolism; Z86.711 Personal history of pulmonary embolism; Z68.42 Body mass index [BMI] 45.0-49.9, adult
CPT/HCPCS: 99283

== ENCOUNTER 2022-10-01 06:04 | Day surgery (SDC) | payer MEDICARE, OTHER ==
[2022-09-29 09:12] VITALS: BMI 45.0
[~2022-10-01 06:04] MED LIST: ceFAZolin 3 GM in SODIUM CHLORIDE 0.9% 100 ML IVPB PRN
[2022-10-01] MEDS ORDERED: LACTATED RINGERS 1,000 ML IV SCH (06:31)
[2022-10-01] MEDS ORDERED: LIDOCAINE 1% (10MG/ML) FOR IV START INTRADERMA PRN (06:31)
[2022-10-01] MEDS ORDERED: ONDANSETRON 4 MG/2 ML VIAL IVP ONE (06:31)
[2022-10-01] MEDS ORDERED: DEXAMETHASONE SOD PHOSPHATE 4 MG/ML 1 ML VIAL IV ONE (06:31)
[2022-10-01 06:53] LABS: Glucose,Whole Blood 139 mg/dL (70-110)
[2022-10-01] MEDS ORDERED: HYDROmorphone 0.5 MG/0.5 ML SYRINGE IVP PRN (07:00)
[2022-10-01] MEDS ORDERED: METOCLOPRAMIDE 5 MG/ML 2 ML VIAL IVP PRN (07:00)
[2022-10-01 07:05] LABS: Basophils # (A) 0.1 k/uL (0-0.2); Basophils % (A) 1 %; Eosinophils # (A) 0.3 k/uL (0-0.7); Eosinophils % (A) 3 %; HCT 44.2 % (39.0-53.0); HGB 15.7 gm/dL (13.0-17.5); Lymphocytes # (A) 2.6 k/uL (1.0-4.8); Lymphocytes % (A) 29 %; MCH 30.9 pg (25.0-35.0); MCHC 35.5 g/dL (31.0-37.0); Mean Platelet Volume 8.2; Monocytes # (A) 0.5 k/uL (0-1.0); Monocytes % (A) 5 %; Neutrophils # (A) 5.5 k/uL (1.3-7.7); Neutrophils % (A) 61 %; Platelet Count 167 k/uL (150-450); RBC 5.08 m/uL (4.30-5.90); RDW 12.6 % (11.5-15.5)
[2022-10-01 07:19] LABS: Albumin 4.1 g/dL (3.5-5.0); Anion Gap 7 mmol/L; Carbon Dioxide 25 mmol/L (22-30); Chloride 104 mmol/L (98-107); Glucose 142 mg/dL (74-99); Sodium 136 mmol/L (137-145); Total Protein 7.2 g/dL (6.3-8.2)
[2022-10-01 07:20] LABS: ALT 19 U/L (4-49); AST 23 U/L (17-59); African American GFR (CKD) >90 (>60 ml/min/1.73 sqM); Alkaline Phosphatase 69 U/L (38-126); Blood Urea Nitrogen 14 mg/dL (9-20); Calcium 8.8 mg/dL (8.4-10.2); Non-African American GFR(CKD) >90 (>60 ml/min/1.73 sqM); Total Bilirubin 0.6 mg/dL (0.2-1.3)
[2022-10-01] MEDS ORDERED: KETOROLAC 15 MG/ML 1 ML VIAL ONE (07:21)
[2022-10-01] MEDS ORDERED: PROPOFOL 10 MG/ML 20 ML VIAL IV ONE (07:21)
[2022-10-01] MEDS ORDERED: MIDAZOLAM 2 MG/2 ML VIAL ONE (07:21)
[2022-10-01] MEDS ORDERED: fentaNYL (PF) 50 MCG/ML 2 ML AMP ONE (07:21)
[2022-10-01] MEDS ORDERED: LIDOCAINE 2% INJ 20 MG/ML (2 ML VIAL) ONE (07:21)
[2022-10-01] MEDS ORDERED: ceFAZolin 1,000 MG in SODIUM CHLORIDE 0.9% 1,000 ML IRRIGATION ONE (07:48)
[2022-10-01] MEDS ORDERED: BUPIVACAINE (PF) 0.25% 30 ML VIAL SQ ONE (07:48)
--- NOTE | 2022-10-01 08:37 | P.OP ---
Date of Procedure: 10/01/22 Preoperative Diagnosis: Hammertoe digits 2 and 3 left foot Postoperative Diagnosis: Same Procedure(s) Performed: Hammertoe corrections digits 2 and 3 left foot Implants: Medline 2.3 mm x 45 mm headless screws 2 Anesthesia: RONI Surgeon: Ed Mendosa Estimated Blood Loss (ml): 0 Pathology: none sent Condition: stable Disposition: PACU Description of Procedure: The patient was brought into the operative room and placed on table supine position. Timeout was taken to confirm correct patient identifiers, correct laterally surgery, and correct procedure. Once all staff in the room were in agreement the timeout, the patient was induced and placed under general anesthesia. A well-padded tourniquet was placed on the left ankle and a bump under the left hip to internally rotate the left foot. 5 mL 0.25% Marcaine was injected as a forefoot block. The left foot was then prepped and draped usual manner. The foot was exsanguinated and the tourniquet inflated to 250 mmHg. Attention directed over the proximal interphalangeal joints of the second and third digits. Linear incisions were made directly over the joint. The incisions were deepened down to the saphenous tissue careful to identify, avoid, and retract any neurovascular structures and cauterize any bleeding vessels. Dissection was then carried down to level the proximal interphalangeal joint. The dorsal capsule, extensor tendon and collateral ligaments were resected to expose the proximal phalangeal head as well as the articular surface of the middle phalanx. A sagittal saw was used to resect the head of the proximal phalanx at the neck and the articular surface of the base of middle phalanx. A guidewire was used to create aerial applicator pilot holes in the proximal phalanges down to the base. The wires were removed and then inserted at the central aspect of the base of the middle phalanx and advanced out the distal aspect of the toe. The wires were then aligned with the aerial applicator pilot holes in the proximal phalanges and then the wire was advanced to the proximal phalangeal base. Fluoroscopy was utilized to make sure that the wire was within the medullary canals of all 3 bones of Hg toe. Once placement of the wires was satisfactory, stab incisions made to the skin at the entry point of the wire. Then Medline hammertoe screws were used over the wires and advanced until the heads engaged the distal phalanx and compressed the arthrodesis sites. Final fluoroscopic imaging showed rectus alignment of the digits and proper placement of the screws. Visually the digits were rectus with correction of the flexion contracture of the proximal interphalangeal joints. The wires were removed and the wound is thoroughly irrigated with antibiotic saline. The skin incisions were closed with 3-0 nylon. Nonadherent gauze and a dry sterile dressings were applied the left foot. The tourniquet was released and capillary refill return to all digits on the left foot. Anesthesia was reversed and the patient was taken to recovery with vital signs stable.
[2022-10-01 08:42] VITALS: TEMP 96.8
[2022-10-01 09:49] VITALS: BP 135/85; PULSE 64; RESP 18
== END 2022-10-01 10:01 | disposition home or self-care (01) ==
LOC: OR 06:04
PROVIDERS: ATTEND Podiatrist
DX: M20.42 Other hammer toe(s) (acquired), left foot (principal); Z79.85 Long-term (current) use of injectable non-insulin antidiabetic drugs; Z79.01 Long term (current) use of anticoagulants; Z79.84 Long term (current) use of oral hypoglycemic drugs; E11.9 Type 2 diabetes mellitus without complications; I10 Essential (primary) hypertension; Z86.718 Personal history of other venous thrombosis and embolism; Z87.891 Personal history of nicotine dependence
CPT/HCPCS: 28285 ×2; 80053; 85025; C1713; J2250; J0690 ×2; J3010; J1885; J2704; J2001; J0665

== ENCOUNTER 2024-01-25 09:53 | Emergency (ER) | payer MEDICARE, OTHER ==
--- NOTE | 2024-01-25 10:17 | ED ---
General Adult HPI - General Source: patient, RN notes reviewed Mode of arrival: ambulatory Limitations: no limitations <Leonarda Corbin - Last Filed: 01/25/24 10:15> <Isrrael Rosenthal - Last Filed: 01/25/24 13:47> - General Chief complaint: Extremity Injury, Upper Stated complaint: L arm pain/L side chest pain Time Seen by Provider: 01/25/24 10:10 - History of Present Illness Initial comments: Quick note: 43-year-old male presents to the emergency department for evaluation of left upper extremity pain. Patient states that the pain has been going on for 2 days. He notes that today he noticed some radiation into his pectoralis muscle. He reports that the pain is worse with lifting his arm. He does report that he did an upper body workout prior to this starting. (Leonarda Corbin) 43-year-old male with left arm pain and left upper chest pain. Patient concerned that this could be related to his heart although he does admit that it is worse with movement and reproducible. No associated vomiting or diaphoresis. No shortness of breath. (Isrrael Rosenthal) - Related Data Home Medications Medication Instructions Recorded Confirmed metFORMIN HCL [Glucophage] 1,000 mg PO BID 04/28/15 09/29/22 traMADol HCL [Ultram] 50 mg PO Q6H PRN 09/21/17 09/29/22 Apixaban [Eliquis] 5 mg PO BID 08/11/22 10/01/22 Semaglutide [Ozempic] 2 mg SQ TH 08/11/22 10/01/22 lisinopriL 2.5 mg PO DAILY 08/11/22 09/29/22 Previous Rx's Medication Instructions Recorded HYDROcodone/APAP 5-325MG [[place] 1 tab PO Q6HR PRN #28 tab 10/01/22 5-325] Sulfamethox-Tmp 800-160Mg [Bactrim 1 tab PO Q12HR 7 Days #14 tab 10/01/22 DS 800-160 mg] Allergies Allergy/AdvReac Type Severity Reaction Status Date / Time No Known Allergies Allergy Verified 01/25/24 10:04 Review of Systems ROS Other: All systems not noted in ROS Statement are negative. <Leonarda Corbin - Last Filed: 01/25/24 10:15> ROS Other: All systems not noted in ROS Statement are negative. <Isrrael Rosenthal - Last Filed: 01/25/24 13:47> ROS Statement: Those systems with pertinent positive or pertinent negative responses have been documented in the HPI. Past Medical History Past Medical History: Diabetes Mellitus, Deep Vein Thrombosis (DVT), Hypertension, Osteoarthritis (OA), Pulmonary Embolus (PE) Additional Past Medical History / Comment(s): hx of dvt leg and pe x2 (2020)., pain right knee., states scab on one of his toes and Dr is aware. History of Any Multi-Drug Resistant Organisms: None Reported Past Surgical History: Orthopedic Surgery Additional Past Surgical History / Comment(s): left great toe, cyst on back of neck Past Anesthesia/Blood Transfusion Reactions: No Reported Reaction, Family Hist ory of Problems w/ Anesthesia Additional Past Anesthesia/Blood Transfusion Reaction / Comment(s): mother had difficulty waking up Past Psychological History: No Psychological Hx Reported Smoking Status: Former smoker Past Alcohol Use History: Occasional Past Drug Use History: None Reported - Past Family History Mother Family Medical History: Diabetes Mellitus, Deep Vein Thrombosis (DVT), Myocardial Infarction ([place]), Pulmonary Embolus Father Family Medical History: Cancer, Diabetes Mellitus Additional Family Medical History / Comment(s): brain cancer <Leonarda Corbin - Last Filed: 01/25/24 10:15> General Exam Limitations: no limitations <Leonarda Corbin - Last Filed: 01/25/24 10:15> General appearance: alert, in no apparent distress Head exam: Present: atraumatic, normocephalic Eye exam: Present: normal appearance, PERRL Respiratory exam: Present: normal lung sounds bilaterally. Absent: respiratory distress, wheezes, rales Cardiovascular Exam: Present: regular rate, normal rhythm GI/Abdominal exam: Present: soft. Absent: distended, tenderness Extremities exam: Present: normal inspection, full ROM, tenderness (Tenderness in the right shoulder with range of motion, pain reproducible on exam) Neurological exam: Present: alert, oriented X3, CN II-XII intact. Absent: motor sensory deficit Psychiatric exam: Present: normal affect, normal mood Skin exam: Present: warm, dry, intact <Isrrael Rosenthal - Last Filed: 01/25/24 13:47> - General Exam Comments Initial Comments: Visual Physical Exam Vital signs reviewed General: Well-appearing, nontoxic, no acute distress. Head: Normocephalic, atraumatic Eyes: PERRLA, EOMI ENT: Airway patent Chest: Nonlabored breathing Skin: No visual rash, normal skin tone Neuro: Alert and oriented 3 Musculoskeletal: No gross abnormalities (Leonarda Corbin) Course Vital Signs 01/25/24 01/25/24 10:02 12:39 Temperature 98.7 F 97.8 F Pulse Rate 100 78 Respiratory 18 18 Rate Blood Pressure 131/86 144/88 O2 Sat by Pulse 98 99 Oximetry Medical Decision Making <Leonarda Corbin - Last Filed: 01/25/24 10:15> - Lab Data Result diagrams: 01/25/24 12:48 01/25/24 12:48 <Isrrael Rosenthal - Last Filed: 01/25/24 13:47> - Medical Decision Making Quick note preformed and electronically signed by Leonarda Corbin PA-C (Leonarda Corbin) Was pt. sent in by a medical professional or institution ([facility], [employer], urgent care, hospital, or usp...) When possible be specific @ -No Did you speak to anyone other than the patient for history (EMS, parent, family, police, friend...)? What history was obtained from this source @ -No Did you review nursing and triage notes (agree or disagree)? Why? @ -I reviewed and agree with nursing and triage notes Were old charts reviewed (outside hosp., previous admission, EMS record, old EKG, old radiological studies, urgent care reports/EKG's, usp records)? Report findings @ -No old charts were reviewed Differential Chest Pain: Stable Angina, Unstable Angina, STEMI, NSTEMI Aortic Dissection, Pneumothorax, Musculoskeletal, Esophageal Spasm GERD, Cholecystitis, Pancreatitis, Zoster, this is not meant to be an all-inclusive list. EKG interpreted by me (3pts min.). @Sinus rhythm rate of 68, CT interval 171, QRS duration 95, QTc [address] segment elevation. X-rays interpreted by me (1pt min.). @ -X-ray of the chest and left shoulder negative for CT interpreted by me (1pt min.). @ -None done acute findings U/S interpreted by me (1pt. min.). @ -None done What testing was considered but not performed or refused? (CT, X-rays, U/S, labs)? Why? @ -None What meds were considered but not given or refused? Why? @ -None Did you discuss the management of the patient with other professionals (professionals i.e. Dr., PA, CONCRETE PUDDLER, lab, RT, psych nurse, social studies teacher, sales support consultant, teacher, chief merchandising officer, case sealer)? Give summary @ -No Was smoking cessation discussed for >3mins.? @ -No Was critical care preformed (if so, how long)? @ -No Were there social determinants of health that impacted care today? How? (Homel essness, low income, unemployed, alcoholism, drug addiction, transportation, low edu. Level, literacy, decrease access to med. care, usp, rehab)? @ -No Was there de-escalation of care discussed even if they declined (Discuss DNR or withdrawal of care, Hospice)? DNR status @ -No What co-morbidities impacted this encounter? (DM, HTN, Smoking, COPD, CAD, Cancer, CVA, ARF, Chemo, Hep., AIDS, mental health diagnosis, sleep apnea, morbid obesity)? @ -None Was patient admitted / discharged? Hospital course, mention meds given and route, prescriptions, significant lab abnormalities, going to OR and other pertinent info. @ -[43-year-old male with left shoulder pain and left upper chest pain in the lateral pectoral muscle group. Patient symptoms are musculoskeletal but he is concerned therefore imaging and cardiac workup is performed. EKG is sinus rhythm without ischemic changes. Chest x-ray and shoulder x-ray are unremarkable. Patient has normal CBC, normal CMP, negative troponin. Patient reassured. Will rest and ice the shoulder and follow-up with primary care provider. Return parameters discussed. Undiagnosed new problem with uncertain prognosis? @ -No Drug Therapy requiring intensive monitoring for toxicity (Heparin, Nitro, Insulin, Cardizem)? @ -No Were any procedures done? @ -No Diagnosis/symptom? @ -[ musculoskeletal shoulder pain Acute, or Chronic, or Acute on Chronic? @ -Acute Uncomplicated (without systemic symptoms) or Complicated (systemic symptoms)? @ -Default Side effects of treatment? @ -No Exacerbation, Progression, or Severe Exacerbation? @ -No Poses a threat to life or bodily function? How? (Chest pain, [place], [place], pneumonia, PE, COPD, DKA, ARF, appy, cholecystitis, CVA, Diverticulitis, Homicidal, Suicidal, threat to staff... and all critical care pts) @ -No (Isrrael Rosenthal) - Lab Data Lab Results 01/25/24 01/25/24 01/25/24 Range/Units 12:48 12:48 12:48 WBC 9.5 (3.8-10.6) k/uL RBC 5.46 (4.30-5.90) m/uL Hgb 16.5 (13.0-17.5) gm/dL Hct 49.4 (39.0-53.0) % MCV 90.5 (80.0-100.0) fL MCH 30.2 (25.0-35.0) pg MCHC 33.4 (31.0-37.0) g/dL RDW 12.7 (11.5-15.5) % Plt Count 180 (150-450) k/uL MPV 8.7 Neutrophils % 65 % Lymphocytes % 27 % Monocytes % 4 % Eosinophils % 2 % Basophils % 0 % Neutrophils # 6.2 (1.3-7.7) k/uL Lymphocytes # 2.6 (1.0-4.8) k/uL Monocytes # 0.4 (0-1.0) k/uL Eosinophils # 0.2 (0-0.7) k/uL Basophils # 0.0 (0-0.2) k/uL PT 10.8 (10.0-12.5) sec INR 1.0 (<1.2) APTT 25.5 (22.0-30.0) sec Sodium 138 (137-145) mmol/L Potassium 4.1 (3.5-5.1) mmol/L Chloride 102 (98-107) mmol/L Carbon Dioxide 31 H (22-30) mmol/L Anion Gap 5 mmol/L BUN 6 L (9-20) mg/dL Creatinine 0.85 (0.66-1.25) mg/dL Est GFR (CKD-EPI)AfAm >90 (>60 ml/min/1.73 sqM) Est GFR (CKD-EPI)NonAf >90 (>60 ml/min/1.73 sqM) Glucose 111 H (74-99) mg/dL Calcium 9.2 (8.4-10.2) mg/dL Magnesium 1.8 (1.6-2.3) mg/dL Total Bilirubin 1.0 (0.2-1.3) mg/dL AST 23 (17-59) U/L ALT 21 (4-49) U/L Alkaline Phosphatase 60 (38-126) U/L Troponin I (0.000-0.034) ng/mL Total Protein 6.9 (6.3-8.2) g/dL Albumin 4.2 (3.5-5.0) g/dL 01/25/24 Range/Units 12:48 WBC (3.8-10.6) k/uL RBC (4.30-5.90) m/uL Hgb (13.0-17.5) gm/dL Hct (39.0-53.0) % MCV (80.0-100.0) fL MCH (25.0-35.0) pg MCHC (31.0-37.0) g/dL RDW (11.5-15.5) % Plt Count (150-450) k/uL MPV Neutrophils % % Lymphocytes % % Monocytes % % Eosinophils % % Basophils % % Neutrophils # (1.3-7.7) k/uL Lymphocytes # (1.0-4.8) k/uL Monocytes # (0-1.0) k/uL Eosinophils # (0-0.7) k/uL Basophils # (0-0.2) k/uL PT (10.0-12.5) sec INR (<1.2) APTT (22.0-30.0) sec Sodium (137-145) mmol/L Potassium (3.5-5.1) mmol/L Chloride (98-107) mmol/L Carbon Dioxide (22-30) mmol/L Anion Gap mmol/L BUN (9-20) mg/dL Creatinine (0.66-1.25) mg/dL Est GFR (CKD-EPI)AfAm (>60 ml/min/1.73 sqM) Est GFR (CKD-EPI)NonAf (>60 ml/min/1.73 sqM) Glucose (74-99) mg/dL Calcium (8.4-10.2) mg/dL Magnesium (1.6-2.3) mg/dL Total Bilirubin (0.2-1.3) mg/dL AST (17-59) U/L ALT (4-49) U/L Alkaline Phosphatase (38-126) U/L Troponin I <0.012 (0.000-0.034) ng/mL Total Protein (6.3-8.2) g/dL Albumin (3.5-5.0) g/dL Disposition <Leonarda Corbin - Last Filed: 01/25/24 10:15> Is patient prescribed a controlled substance at d/c from ED?: No Time of Disposition: 13:47 <Isrrael Rosenthal - Last Filed: 01/25/24 13:47> Clinical Impression: Strain of shoulder Disposition: HOME SELF-CARE Condition: Good Instructions (If sedation given, give patient instructions): Shoulder Sprain (ED) Referrals: Ted Franco MD [Primary Care Provider] - 1-2 days
--- NOTE | 2024-01-25 11:20 | XR ---
EXAMINATION TYPE: XR chest 2V DATE OF EXAM: 01/25/2024 CLINICAL HISTORY: pain TECHNIQUE: Frontal and lateral views of the chest are obtained. COMPARISON: 08/11/2022 FINDINGS: There is no focal air space opacity, pleural effusion, or pneumothorax seen. The cardiac silhouette size is within normal limits. The osseous structures are intact. IMPRESSION: No acute cardiopulmonary process. [facility], , 01/25/2024 11:17 AM
--- NOTE | 2024-01-25 11:20 | XR ---
EXAMINATION TYPE: XR shoulder complete LT DATE OF EXAM: 01/25/2024 11:10 AM COMPARISON: None. CLINICAL INDICATION: Male, 43 years old with history of pain, pain TECHNIQUE: XR shoulder complete LT views were obtained FINDINGS: There is no acute fracture/dislocation evident. The acromioclavicular and glenohumeral joint spaces appear within normal limits. The visualized ribs are intact and unremarkable. IMPRESSION: There is no acute fracture or dislocation. [facility], , 01/25/2024 11:18 AM
[2024-01-25 12:42] VITALS: TEMP 97.8
[2024-01-25 13:15] LABS: Basophils % (A) 0 %; Eosinophils # (A) 0.2 k/uL (0-0.7); Eosinophils % (A) 2 %; HCT 49.4 % (39.0-53.0); HGB 16.5 gm/dL (13.0-17.5); Lymphocytes # (A) 2.6 k/uL (1.0-4.8); Lymphocytes % (A) 27 %; MCH 30.2 pg (25.0-35.0); MCHC 33.4 g/dL (31.0-37.0); MCV 90.5 fL (80.0-100.0); Mean Platelet Volume 8.7; Monocytes # (A) 0.4 k/uL (0-1.0); Monocytes % (A) 4 %; Neutrophils # (A) 6.2 k/uL (1.3-7.7); Neutrophils % (A) 65 %; Platelet Count 180 k/uL (150-450); RBC 5.46 m/uL (4.30-5.90); RDW 12.7 % (11.5-15.5); WBC 9.5 k/uL (3.8-10.6)
[2024-01-25 13:33] LABS: ALT 21 U/L (4-49); AST 23 U/L (17-59); African American GFR (CKD) >90 (>60 ml/min/1.73 sqM); Albumin 4.2 g/dL (3.5-5.0); Alkaline Phosphatase 60 U/L (38-126); Anion Gap 5 mmol/L; Blood Urea Nitrogen 6 mg/dL (9-20); Calcium 9.2 mg/dL (8.4-10.2); Carbon Dioxide 31 mmol/L (22-30); Chloride 102 mmol/L (98-107); Glucose 111 mg/dL (74-99); Magnesium 1.8 mg/dL (1.6-2.3); Non-African American GFR(CKD) >90 (>60 ml/min/1.73 sqM); Potassium 4.1 mmol/L (3.5-5.1); Sodium 138 mmol/L (137-145); Total Protein 6.9 g/dL (6.3-8.2)
[2024-01-25 13:38] LABS: Partial Thromboplastin Time 25.5 sec (22.0-30.0); Prothrombin Time 10.8 sec (10.0-12.5)
[2024-01-25 14:08] VITALS: BP 134/91; PULSE 76; RESP 20
== END 2024-01-25 14:08 | disposition home or self-care (01) ==
LOC: EC 09:53
DX: S46.912A Strain of unspecified muscle, fascia and tendon at shoulder and upper arm level, left arm, initial encounter (principal); Z87.891 Personal history of nicotine dependence; X50.0XXA Overexertion from strenuous movement or load, initial encounter
CPT/HCPCS: 36415; 71046; 80053; 83735; 84484; 85025; 85610; 85730; 93005; 99285